=== PATIENT | male | born 1970 | race Caucasian/White ===

== ENCOUNTER 2019-11-21 20:48 | Emergency (ER) | payer BC ==
[~2019-11-21] VITALS: Ht 177.8 cm; Wt 97.5 kg
--- OUTSIDE RECORDS SUMMARY | ~2019-11-21 | XMS | Clinical Summary ---
Demographics + + + | Address | [address] | | | [place] [address] | + + + | Home Phone | | + + + | Preferred Language | Unknown | + + + | Marital Status | Single | + + + | Jain Affiliation | Unknown | + + + | Race | Unknown | + + + | Ethnic Group | Unknown | + + + Author + + + | Author | [facility] | | | and [place] | + + + | Organization | [facility] | | | and [place] | + + + | Address | Unknown | + + + | Phone | Unavailable | + + + Support + + + + + | Name | Relationship | Address | Phone | + + + + + | Hayley Flores | ECON | [address] | | | | | [place] | | | | | [address] | | + + + + + Care Team Providers + +------+ + | Care Fudge Candy Maker Name | Role | Phone | + +------+ + | Rick Iraheta MD | PCP | | + +------+ + Allergies No Known Allergies Medications No known medications Active Problems + + + | Problem | Noted Date | + + + | Calculus of ureter - Left - Mar 2016 | 03/10/2016 | + + + | H/O Tear of ACL (anterior cruciate ligament) | 03/10/2016 | + + + Family History + + +------+ + | Medical History | Relation | Name | Comments | + + +------+ + | Stroke | Maternal | | | | | Grandfath | | | | | er | | | + + +------+ + | Stroke | Maternal | | | | | Grandmoth | | | | | er | | | + + +------+ + | Cancer | Mother | | | + + +------+ + | Prostate cancer | Neg Hx | | | + + +------+ + + +------+ + + | Relation | Name | Status | Comments | + +------+ + + | Father | | Alive | | + +------+ + + | Maternal Grandfather | | | | + +------+ + + | Maternal Grandmother | | | | + +------+ + + | Mother | | | breast cancer with mets | | | | (Age | | | | | 59) | | + +------+ + + Social History + + + +--------+------+ | Tobacco Use | Types | Packs/Day | Years | Date | | | | | Used | | + + + +--------+------+ | Light Tobacco Smoker | Cigarettes | 0.25 | | | + + + +--------+------+ + +------+---+ + | Smokeless Tobacco: | Chew | | Quit: | | Former User | | | 03/16/19 | | | | | 90 | + +------+---+ + + + | Tobacco Cessation: Ready to Quit: No; Counseling Given: Yes | + + + + +---------+ + | Alcohol Use | Drinks/Week | oz/Week | Comments | + + +---------+ + | Yes | 0 Standard drinks | 0.0 | weekend drinking | | | or equivalent | | only | + + +---------+ + + + + | Sex Assigned at | Date Recorded | | | | + + + | Not on file | | + + + + + + + | Job Start Date | Occupation | Industry | + + + + | Not on file | Not on file | Not on file | + + + + + + + + | Travel History | Travel Start | Travel End | + + + + + + | No recent travel history available. | + + Last Filed Vital Signs + + + + + | Vital Sign | Reading | Time Taken | Comments | + + + + + | Blood Pressure | 124/72 | 03/16/2016 9:50 AM | | | | | PDT | | + + + + + | Pulse | 88 | 03/16/2016 9:50 AM | | | | | PDT | | + + + + + | Temperature | 37.7 C (99.9 F) | 03/10/2016 11:40 AM | | | | | PDT | | + + + + + | Respiratory Rate | 20 | 03/16/2016 9:50 AM | | | | | PDT | | + + + + + | Oxygen Saturation | 96% | 03/10/2016 2:51 PM | | | | | PDT | | + + + + + | Inhaled Oxygen | - | - | | | Concentration | | | | + + + + + | Weight | 95.4 kg (210 lb 4.8 | 03/16/2016 9:50 AM | | | | oz) | PDT | | + + + + + | Height | 177.8 cm (5' 10") | 03/16/2016 9:50 AM | | | | | PDT | | + + + + + | Body Mass Index | 30.17 | 03/16/2016 9:50 AM | | | | | PDT | | + + + + + Plan of Treatment + + + + + | Health Maintenance | Due Date | Last Done | Comments | + + + + + | Vaccine: | | | | | Dtap/Tdap/Td (1 - | 1 | | | | Tdap) | | | | + + + + + | Vaccine: Influenza | | | | | (Season Ended) | 0 | | | + + + + + Implants + +-------+--------+ +--------+--------+--------+ | Implanted | Type | Area | Manufacture | Device | Shelf | Model | | | | | r | | Expira | / | | | | | | Identi | tion | Serial | | | | | | fier | Date | / Lot | + +-------+--------+ +--------+--------+--------+ | Stent Uro Unvrs Sft 7fr 28cm | Stent | Left: | DARIEN | | 10/25/ | [id number] | | - [id number]: Qty: 1 | | Ureter | [employer] | | 2018 | / | | on 03/10/2016 by Leidy, | | | - DARIEN | | | /[id number] | | John Peralta MD at [facility] | | | | | | 86 | | [facility] | | | | | | | + +-------+--------+ +--------+--------+--------+ Results Not on filefrom Last 3 Months Insurance + +--------+ +--------+ +---------+------+ | Payer | Benefi | Subscriber | Effect | Phone | Address | Type | | | t Plan | ID | amber | | | | | | / | | Dates | | | | | | Group | | | | | | + +--------+ +--------+ +---------+------+ | [facility] | [employer] | [id number] | 08/09/19 | [id number] | | PPO | | | | | 16-Pre | 2 | | | | | HEALTH | | sent | | | | | | CARE | | | | | | | | PPO | | | | | | + +--------+ +--------+ +---------+------+ + +--------+ +--------+ + + | Guarantor Name | Accoun | Relation to | Date | Phone | Billing Address | | | t Type | Patient | of | | | | | | | | | | + +--------+ +--------+ + + | Dimitri Robles | Person | Self | [birth year] | [address] | | [address]/Fam | | 1970 | [phone] | [address] [place], | | | maia | | | [address] (Home) | [place] [address] | + +--------+ +--------+ + + Advance Directives + + + + + | Type | Date Recorded | Patient | Explanation | | | | Engineering Program Analyst | | + + + + + | Power of | | | | | Reject Opener And Filler | | | | + + + + + | Advance | 03/08/2016 6:39 | | working on updating old copy | | Directive | PM | | | + + + + + + + + + + | Code Status | Date | Date | Comments | | | Activated | Inactivated | | + + + + + | Full Code | 03/10/2016 | 03/10/2016 | | | | 12:06 PM | 5:49 PM | | + + + + +
--- OUTSIDE RECORDS SUMMARY | ~2019-11-21 | XMS | Encounter Summary ---
Demographics + + + | Address | [address] | | | [place] [address] | + + + | Home Phone | | + + + | Preferred Language | Unknown | + + + | Marital Status | Single | + + + | Yazidism Affiliation | Unknown | + + + | Race | Unknown | + + + | Ethnic Group | Unknown | + + + Author + + + | Author | [facility] | | | and [place] | + + + | Organization | [facility] | | | and [place] | + + + | Address | Unknown | + + + | Phone | Unavailable | + + + Support + + + + + | Name | Relationship | Address | Phone | + + + + + | Hayley Flores | ECON | [address] | | | | | [place], [place] | | | | | [address] | | + + + + + Care Team Providers + +------+ + | Care Councillor [employer] Name | Role | Phone | + +------+ + | No, Physician | PCP | Unavailable | + +------+ + Reason for Visit Auth/Cert +--------+--------+ + + + + | Status | Reason | Specialty | Diagnoses / | Referred By | Referred To | | | | | Procedures | Contact | Contact | +--------+--------+ + + + + | | | | Diagnoses | | | | | | | Left | | | | | | | ureteral | | | | | | | stone Left | | | | | | | ureteral | | | | | | | stone | | | | | | | [N20.1] | | | | | | | Procedures | | | | | | | TN | | | | | | | CYSTO/URETER | | | | | | | O | | | | | | | W/LITHOTRIPS | | | | | | | Y &INDWELL | | | | | | | STENT INSRT | | | | | | | CYSTOSCOPY | | | | | | | URETEROSCOPY | | | | | | | W/ LASER | | | +--------+--------+ + + + + Encounter Details +--------+ + + + + | Date | Type | Department | Care Team | Description | +--------+ + + + + | 03/10/ | Hospital | [facility] | John Forbes, | | | 2016 | Encounter | MED CTR XRAY [address] | MD Lonnie IBARRA | | | | | [place] | [place] | | | | | [place] [address] | [address] | | | | | [phone] | | | +--------+ + + + + Social History + + + +--------+------+ | Tobacco Use | Types | Packs/Day | Years | Date | | | | | Used | | + + + +--------+------+ | Light Tobacco Smoker | Cigarettes | 0.25 | | | + + + +--------+------+ + + +---------+ + | Alcohol Use | Drinks/Week | oz/Week | Comments | + + +---------+ + | Yes | | | weekend drinking | | | | | only | + + +---------+ [...] recent travel history available. | + + documented as of this encounter Medications at Time of Discharge + + + +---------+ + + | Medication | Sig | Dispensed | Refills | Start | End Date | | | | | | Date | | + + + +---------+ + + | | Take 1 tablet by | 15 | 0 | 03/10/20 | | | HYDROcodone-acetamin | mouth every 4 hours | tablet | | 16 | 6 | | ophen (NORCO) 5-325 | as needed. | | | | | | mg per tablet | | | | | | + + + +---------+ + + | ondansetron | Take 4 mg by mouth | | 0 | | | | (ZOFRAN ODT) 4 mg | every 8 hours as | | | | 6 | | disintegrating | needed for Nausea. | | | | | | tablet | | | | | | + + + +---------+ + + | | Take 1-2 tablets by | | 0 | | | | oxyCODONE-acetaminop | mouth every 6 hours | | | | 6 | | hen (PERCOCET) 5-325 | as needed for Pain. | | | | | | mg per tablet | For renal stones | | | | | + + + +---------+ + + | phenazopyridine | Take 1 tablet by | 9 | 0 | 03/10/20 | | | (PYRIDIUM) 200 mg | mouth 3 times daily | tablet | | 16 | 6 | | tablet | for 3 days. | | | | | + + + +---------+ + + | | Take 1 tablet by | 10 | 0 | 03/10/20 | | | sulfamethoxazole-tri | mouth 2 times daily | tablet | | 16 | 6 | | methoprim (BACTRIM | for 5 days. | | | | | | DS) 800-160 mg per | | | | | | | tablet | | | | | | + + + +---------+ + + | tamsulosin | Take 1 capsule by | 30 | 0 | 03/08/20 | | | (FLOMAX) 0.4 mg CAPS | mouth Daily. | capsule | | 16 | 6 | + + + +---------+ + + documented as of this encounter Plan of Treatment Not on filedocumented as of this encounter Procedures + +--------+ + + + | Procedure Name | Priori | Date/Time | Associated Diagnosis | Comments | | | ty | | | | + +--------+ + + + | FL PYELOGRAM | Routin | 03/10/2016 | | Results for this | | RETROGRADE | e | 12:04 PM | | procedure are in the | | | | PDT | | results section. | + +--------+ + + + documented in this encounter Results FL Pyelogram Retrograde (03/10/2016 12:04 PM PDT) + + | Specimen | + + | | + + + + + | Narrative | Performed At | + + + | FL PYELOGRAM RETROGRADE. 03/10/2016 12:03 PM HISTORY: intra op. | [facility] | | COMPARISON: None available. FINDINGS/IMPRESSION - | | | Fluoroscopic images demonstrate placement of left-sided pigtail | | | catheter. Please see the operative report for further details. | | | Dictated and Signed by: Adalid Graves MD Electronically | | | signed: 03/10/2016 12:57 PM | | + + + + + | Procedure Note | + + | Carlos Alberto Valdovinos Results In - 03/10/2016 1:00 PM PDT FL PYELOGRAM RETROGRADE. 03/10/2016 | | 12:03 PMHISTORY: intra op.COMPARISON: None available.FINDINGS/IMPRESSION -Fluoroscopic | | images demonstrate placement of left-sided pigtail catheter.Please see the operative | | report for further details.Dictated and Signed by: Adalid Graves MD Electronically | | signed: 03/10/2016 12:57 PM | | | |FINDINGS/IMPRESSION - | |Fluoroscopic images demonstrate placement of left-sided pigtail catheter. | | | |Please see the operative report for further details. | | | |Dictated and Signed by: Aadlid Graves MD | | Electronically signed: 03/10/2016 12:57 PM | + + + +---------+ + + | Performing | Address | City/State/Zipcode | Phone Number | | Organization | | | | + +---------+ + + | [facility] | | | | + +---------+ + + documented in this encounter Visit Diagnoses Not on filedocumented in this encounter"
--- OUTSIDE RECORDS SUMMARY | ~2019-11-21 | XMS | Encounter Summary ---
Demographics + + + | Address | [address] | | | [place] [address] | + + + | Home Phone | | + + + | Preferred Language | Unknown | + + + | Marital Status | Single | + + + | Anglican Affiliation | Unknown | + + + | Race | Unknown | + + + | Ethnic Group | Unknown | + + + Author + + + | Author | [facility] | | | and [place] | + + + | Organization | [facility] | | | and [...] [place], [place] | | | | | [address] | | + + + + + Care Team Providers + +------+ + | Care Supervisor Records Change Name | Role | Phone | + [...] | | | | | | | [place] | | | | | | | [...] + + | 03/10/ | Hospital | [facility] | John Forbes, | Calculus of ureter | | 2016 | Encounter | MED CTR OR INTRA OP | MD Lonnie IBARRA | (Primary Dx) | | | | [address] | [place] | | | | | [place] | [address] | | | | | [address] | | | | | | [phone] | | | +--------+ + + + [...] + + documented as of this encounter Last Filed Vital Signs + + + + + | Vital Sign | Reading | Time Taken | Comments | + + + + + | Blood Pressure | 136/68 | 03/10/2016 2:45 PM | | | | | PDT | | + + + + + | Pulse | 99 | 03/10/2016 2:51 PM | | | | | PDT | | + + + + + | Temperature | 37.7 C (99.9 F) | 03/10/2016 11:40 AM | | | | | PDT | | + + + + + | Respiratory Rate | 16 | 03/10/2016 12:30 PM | | | | | PDT | | + + + + + | Oxygen Saturation | 96% | 03/10/2016 2:51 PM | | | | | PDT | | + + + + + | Inhaled Oxygen | - | - | | | Concentration | | | | + + + + + | Weight | 94.3 kg (208 lb) | 03/10/2016 9:00 AM | | | | | PDT | | + + + + + | Height | 177.8 cm (5' 10") | 03/10/2016 9:00 AM | | | | | PDT | | + + + + + | Body Mass Index | 29.84 | 03/10/2016 9:00 AM | | | | | PDT | | + + + + + documented in this encounter Discharge Instructions Instructions John Forbes MD - 03/10/2016DISCHARGE INSTRUCTIONS URINARY TRACT STONE SURGERY including: URETEROSCOPY WITH STONE EXTRACTION LASER LITHOTRIPSY URETERAL STENT PLACEMENT Activity: Light for 1-2 days. Walk frequently as tolerated. Gradually return to normal activitie s as tolerated. Best to avoid intercourse for 5-7 days. Preferable to avoid heavy lifting or straining for 5-7 days. Following laser lithotripsy, please strain your urine and save any stones for analysis. Diet: Clear liquids until nausea passes, then return to normal diet as tolerated. Fluids are encouraged to help flush blood out of your urinary tract. Drink 8 glasses of fluid a day until urine is free of blood. Pain pills can cause constipation. Use a laxative of your choice if necessary. Pain and Comfort: Bloody urine is common and will generally clear up within several days, but can last zaid dino. Slight burning on urination may occur. Urinary urgency and frequency is also not unusua l after this type of surgery. Use pain medication as directed. Take Tylenol for less severe pain. Do not take Aspirin for 72 hours after your surgery, unless instructed differently. Additional Instructions: You may shower at any time. Follow up: Call Dr Forbes's office ([phone]) to set up your follow-up appointment or other arr angements as appropriate. Call YOUR UROLOGIST'S office for: Unremitting very heavy bright red bleeding and/or large volume of clots when urinating, that is worsening despite rest and pushing oral fluids. Inability to urinate. Elevated fever over 101 F. Frequent unremitting nausea/vomiting. Severe pain not relieved by rest or prescribed pain medication. If you are unable to reach your doctor at the above number, call the answering service at (after hours and weekends). If you have received sedation / an anesthetic today, DO NOT drive a vehicle, use alcoholic beverages, sign legal documents, take public transportation alone or care for a dependent pe rson for the next 24 hours. Also, you should not drive until you are off of all narcotic pa in medications and can move your legs easily without pain. Stent: You do have a ureteral stent in on your left side. If you do have a stent, please review the following: DO NOT CUT OR TRIM THE SUTURE EXITING THE URETHRA, IT IS ATTACHED TO THE STENT What is a Stent? A stent is a soft silicone tube placed in your ureter (the tube from your kidney to your bl adder). It is used to facilitate the passage of urine and sometimes kidney stone fragments f rom your kidney. How does it feel? The following symptoms are normal: 1. Pressure or mild irritation in your bladder area. 2. Urgency to urinate. 3. Occasional discomfort in the kidney before and after you empty your bladder. 4. Blood in the urine is common and will generally clear up within several days but can las t longer. 5. Sexual activity is safe while the stent is in place, though it may be uncomfortable for you. These symptoms go away after the removal of your stent. Some patients have no symptoms at a ll, while others are quite limited by the stent. When is it removed? Stent removal is usually a simple procedure with minimal discomfort, generally done within 1-2 weeks after insertion. It usually involves placing numbing jelly into the urethra, and then using a small scope to grab and extract the stent. The entire procedure usually takes less than one minute. String? If there is a string or thread tied to the stent that is visible, DO NOT CUT OR PULL THE ST RING. If it disappears, do not worry about it. When the doctor is ready to remove the stent, this string will be used to help pull it out. documented in this encounter Medications at Time of Discharge [...] section. | + +--------+ + + + | CALCULI ANALYSIS | Routin | 03/10/2016 | | Results for this | | | e | 11:04 AM | | procedure are in the | | | | PDT | | results section. | + +--------+ + + + | CYSTOSCOPY | | 03/10/2016 | Left ureteral | | | URETEROSCOPY W/ | | 9:59 AM | stone | | | LASER | | PDT | | | + +--------+ + + + | LABS - EXTERNAL SCAN | | 03/09/2016 | | Results for this | | | | 12:00 AM | | procedure are in the | [...] | | | |Dictated and Signed by: Adalid Graves MD | | Electronically signed: 03/10/2016 12:57 PM | + + + +---------+ + + | Performing | Address | City/State/Zipcode | Phone Number | | Organization | | | | + +---------+ + + | [facility] | | | | + +---------+ + + Calculi Analysis (03/10/2016 11:04 AM PDT) + + + + + + | Component | Value | Ref Range | Performed | Pathologist | | | | | At | Signature | + + + + + + | Nidus | Not observed | | REFERENCE | | | | | | [facility] | | + + + + + + | Component 1 | See CommentsComment: | | REFERENCE | | | | Calcium Oxalate | | [facility] | | | | Dihydrate ([place]) | | | | | | 65%Carbonate Apatite | | | | | | ([place]) 35% | | | | + + + + + + | Component 2 | Not Reported | | REFERENCE | | | | | | [facility] | | + + + + + + | Calculi | 0.0200Comment: Testing | g | REFERENCE | | | Weight | Performed: Specialty | | [facility] | | | | [place] | | | | | | [address] | | | | | | [place] [address] | | | | + + + + + + + + | Specimen | + + | Soft tissue sample | | (specimen) - Ureter | + + + + + | Narrative | Performed At | + + + | Please specify site/laterality >left ureter kidney stone | REFERENCE LAB | | | [facility] | + + + + + + + + | Performing | Address | City/State/Zipcode | Phone Number | | Organization | | | | + + + + + | [facility] | [address] | [place] [address] | [phone] | + + + + + LABS - EXTERNAL SCAN (03/09/2016 12:00 AM PDT) + + + | Narrative | Performed At | + + + | Ordered by an | | | unspecified provider. | | + + + documented in this encounter Visit Diagnoses + + | Diagnosis | + + | Calculus of ureter - Left - Mar 2016 - Primary Calculus of ureter | + + documented in this encounter Administered Medications + +--------+ + +------+------+ | Medication Order | MAR | Action | Dose | Rate | Site | | | Action | Date | | | | + +--------+ + +------+------+ | HYDROcodone-acetaminophen | Given | 03/10/20 | 1 tablet | | | | (NORCO) 5-325 mg per tablet 1-2 | | 16 1:36 | | | | | tablet 1-2 tablet, Oral, EVERY 4 | | PM PDT | | | | | HOURS PRN, Pain, Starting Fri | | | | | | | 03/10/16 at 1206, If ineffective | | | | | | | use [place] 10/325 if ordered. If | | | | | | | not tolerated, use Percocet then | | | | | | | Oxycodone if ordered., | | | | | | | Post-op/Phase II | | | | | | + +--------+ + +------+------+ +-------+ + +---+---+ | Given | 03/10/20 | 1 tablet | | | | | 16 12:39 | | | | | | PM PDT | | | | +-------+ + +---+---+ +---+---+ | | | +---+---+ + +-------+ +-------+---+---+ | ketorolac (TORADOL) injection | Given | 03/10/20 | 30 mg | | | | 30 mg 30 mg, Intravenous, ONCE, | | 16 11:59 | | | | | 03/10/16 at 1200, For 1 dose, | | AM PDT | | | | | If urine output is less than | | | | | | | 240mL/8 hours (30 mL/hr) or if | | | | | | | signs of bleeding, contact MD and | | | | | | | hold ketorolac., Post-op/Phase | | | | | | | II | | | | | | + +-------+ +-------+---+---+ +---+---+ | | | +---+---+ + +---------+ +--------+-------+---+ | lactated ringers (LR) infusion | New Bag | 03/10/20 | 1,000 | 100 | | | at 10-100 mL/hr, Intravenous, | | 16 1:56 | mLs | mL/hr | | | CONTINUOUS, Starting 03/10/16 | | PM PDT | | | | | at 0945, TKO., Pre-op | | | | | | + +---------+ +--------+-------+---+ +---------+ +--------+-------+---+ | New Bag | 03/10/20 | 1,000 | 100 | | | | 16 9:41 | mLs | mL/hr | | | | AM PDT | | | | +---------+ +--------+-------+---+ +---+---+ | | | +---+---+ + +-------+ +--------+---+---+ | phenazopyridine (PYRIDIUM) | Given | 03/10/20 | 200 mg | | | | tablet 200 mg 200 mg, Oral, | | 16 12:39 | | | | | ONCE, 03/10/16 at 1230, For 1 | | PM PDT | | | | | dose, Post-op/Phase II | | | | | | + +-------+ +--------+---+---+ +---+---+ | | | +---+---+ documented in this encounter
--- OUTSIDE RECORDS SUMMARY | ~2019-11-21 | XMS | Encounter Summary ---
Demographics + + + | Address | [address] | | | [place] [address] | + + + | Home Phone | | + + + | Preferred Language | Unknown | + + + | Marital Status | Single | + + + | Zoroastrian Affiliation | Unknown | + + + | Race | Unknown | + + + | Ethnic Group | Unknown | + + + Author + + + | Author | [facility] | | | and [place] | + + + | Organization | [facility] | | | [...] [address] | | | | | [place] | | | | | [address] | | + + + + + Care Team Providers + +------+ + | Care Instructor Physical Name | Role | Phone | + +------+ + | Rick Iraheta MD | PCP | | + +------+ + Reason for Visit +--------+ + | Reason | Comments | +--------+ + | Other | POST OP | +--------+ + Encounter Details +--------+ + + + + | Date | Type | Department | Care Team | Description | +--------+ + + + + | 03/14/ | Telephone | [facility] | John Forbes, | Other (POST OP) | | 2016 | | [address] | MD [address] | | | | | [place] | [place] | | | | | [address] | [address] | | | | | [phone] | | | +--------+ + + + [...] Not on filedocumented as of this encounter Visit Diagnoses Not on filedocumented in this encounter"
--- OUTSIDE RECORDS SUMMARY | ~2019-11-21 | XMS | Encounter Summary ---
Demographics + + + | Address | [address] | | | [place] [address] | + + + | Home Phone | | + + + | Preferred Language | Unknown | + + + | Marital Status | Single | + + + | Protestant Affiliation | Unknown | + + + | Race | Unknown | + + + | Ethnic Group | Unknown | + + + Author + + + | Author | [facility] | | | and [place] | + + + | Organization | [facility] | | | [...] [place] | | | | | [address] | | + + + + + Care Team Providers + +------+ + | Care Packing And Final Assembly Supervisor Name | Role | Phone | + +------+ + | No, Physician | PCP | Unavailable | + +------+ + Reason for Visit + + + | Reason | Comments | + + + | Abdominal Pain | | + + + Encounter Details +--------+ + + + + | Date | Type | Department | Care Team | Description | +--------+ + + + + | 03/08/ | Emergency | [facility] | Rodrick Gonzalez, | Acute abdominal pain | | 2016 | | [facility] | MD [address] | in left flank | | | | CENTER [address] | [place], [place] | (Primary Dx); Renal | | | | [place], [place] | [address] | colic on left side | | | | [address] | | | | | | [phone] | | | +--------+ + + + + Social History + + + +--------+------+ | Tobacco Use | Types | Packs/Day | Years | Date | | | | | Used | | + + + +--------+------+ | Light Tobacco Smoker | Cigarettes | 0.25 | | | + + + +--------+------+ + + | Tobacco Cessation: Ready to Quit: No | + + + + +---------+ + | Alcohol Use | Drinks/Week | oz/Week | Comments | + + +---------+ + | Yes | | | | + + +---------+ + + + [...] + + + | Blood Pressure | 147/93 | 03/08/2016 2:53 PM | | | | | PDT | | + + + + + | Pulse | 78 | 03/08/2016 6:34 PM | | | | | PDT | | + + + + + | Temperature | 37.2 C (99 F) | 03/08/2016 2:53 PM | | | | | PDT | | + + + + + | Respiratory Rate | 16 | 03/08/2016 6:34 PM | | | | | PDT | | + + + + + | Oxygen Saturation | 97% | 03/08/2016 6:34 PM | | | | | PDT | | + + + + + | Inhaled Oxygen | - | - | | | Concentration | | | | + + + + + | Weight | 97.5 kg (215 lb) | 03/08/2016 2:53 PM | | | | | PDT | | + + + + + | Height | 177.8 cm (5' 10") | 03/08/2016 2:53 PM | | | | | PDT | | + + + + + | Body Mass Index | 30.85 | 03/08/2016 2:53 PM | | | | | PDT | | + + + + + documented in this encounter Discharge Instructions AttachmentsThe following attachments cannot be sent through Care Everywhere.ABDOMINAL PAIN, ADULT (FILIPINO)KIDNEY STONE W/ COLIC (FILIPINO)documented in this encounter Medications at Time of [...] | + +--------+ + + + | CT RENAL STONE WO | STAT | 03/08/2016 | | Results for this | | CONTRAST | | 5:10 PM | | procedure are in the | | | | PDT | | results section. | + +--------+ + + + documented in this encounter Results CT Renal Stone Wo Contrast (03/08/2016 5:10 PM PDT) + + | Specimen | + + | | + + + + + | Narrative | Performed At | + + + | UNENHANCED CT ABDOMEN AND PELVIS 03/08/2016 5:06 PM CLINICAL | [facility] | | HISTORY: ABDOMINAL PAIN AND URINARY FREQUENCY, HISTORY OF KIDNEY | | | STONES COMPARISON: CT abdomen and pelvis February 19 | | | TECHNIQUE: Axial unenhanced images are performed through the abdomen | | | and pelvis. Coronal and sagittal reformations are also performed. | | | ABDOMEN FINDINGS: Minimally imaged lung bases are unremarkable. | | | Portions of the liver, stomach, spleen, pancreas and adrenal glands | | | are not imaged. Imaged portions of these organs have an | | | unremarkable unenhanced appearance, along with the gallbladder. The | | | previously evident 4 mm left ureteral calculus has migrated slightly | | | more distally, and is positioned approximately 1.5 cm proximal to | | | the ureterovesical junction. Previously visible mild | | | hydroureteronephrosis has resolved and periureteral inflammation has | | | significantly improved as well. No other renal or ureteral calculus | | | is evident. No renal parenchymal abnormality is visible on this | | | unenhanced exam. The bowel and appendix are unremarkable, without | | | evidence of obstruction or inflammation. No free air, ascites, or | | | pathologic lymph node enlargement is evident. There is a small, | | | fat-containing umbilical hernia. Small Schmorl's nodes are present | | | within lumbar vertebral endplates. The bones and soft tissues are | | | otherwise unremarkable. PELVIS FINDINGS: The bladder is mostly | | | decompressed and not well evaluated. The prostate and seminal | | | vesicles are unremarkable. Rounded deep pelvic calcifications | | | persist and are consistent with phleboliths. Tiny, fat-containing | | | inguinal hernias are suggested. Mildly prominent bilateral inguinal | | | lymph nodes measure up to 1.4 cm short axis on the right on image | | | 134. No free air or ascites is evident. The bones and soft tissues | | | are unremarkable. IMPRESSION - 1. INTERVAL MIGRATION OF THE | | | PREVIOUSLY VISIBLE LEFT URETERAL CALCULUS, NOW POSITIONED | | | APPROXIMATELY 1.5 CM PROXIMAL TO THE URETEROVESICAL JUNCTION, WITH | | | RESOLVING PERIURETERAL INFLAMMATION AND NO RESIDUAL | | | HYDROURETERONEPHROSIS. 2. MILDLY PROMINENT BILATERAL INGUINAL | | | LYMPH NODES. Images were provided for interpretation on March 08, | | | 2015 at 1715 hours. Results were finalized at 1735 hours. | | | Dictated and Signed by: Rodriguez Griffin MD Electronically signed: | | | 03/08/2016 5:34 PM | | + + + + + | Procedure Note | + + | Bonifacio, Rad Results In - 03/08/2016 5:[address] ABDOMEN AND PELVIS | | 03/08/2016 5:06 PM CLINICAL HISTORY: ABDOMINAL PAIN AND URINARY FREQUENCY, HISTORY OF | | KIDNEYSTONES COMPARISON: CT abdomen and pelvis February 19 TECHNIQUE: Axial unenhanced | | images are performed through the abdomen and pelvis. Coronal and sagittal reformations | | are also performed. ABDOMEN FINDINGS: Minimally imaged lung bases are unremarkable. | | Portions ofthe liver, stomach, spleen, pancreas and adrenal glands are not imaged. | | Imagedportions of these organs have an unremarkable unenhanced appearance, along withthe | | gallbladder. The previously evident 4 mm left ureteral calculus hasmigrated slightly | | more distally, and is positioned approximately 1.5 cm proximalto the ureterovesical | | junction. Previously visible mild hydroureteronephrosishas resolved and periureteral | | inflammation has significantly improved as well. No other renal or ureteral calculus is | | evident. No renal parenchymalabnormality is visible on this unenhanced exam. The bowel | | and appendix areunremarkable, without evidence of obstruction or inflammation. No free | | air,ascites, or pathologic lymph node enlargement is evident. There is a | | small,fat-containing umbilical hernia. Small Schmorl's nodes are present withinlumbar | | vertebral endplates. The bones and soft tissues are otherwiseunremarkable. PELVIS | | FINDINGS: The bladder is mostly decompressed and not well evaluated. The prostate and | | seminal vesicles are unremarkable. Rounded deep pelviccalcifications persist and are | | consistent with phleboliths. Tiny,fat-containing inguinal hernias are suggested. | | Mildly prominent bilateralinguinal lymph nodes measure up to 1.4 cm short axis on the | | right on image 134. No free air or ascites is evident. The bones and soft tissues are | | unremarkable. IMPRESSION - 1. INTERVAL MIGRATION OF THE PREVIOUSLY VISIBLE LEFT | | URETERAL CALCULUS, NOWPOSITIONED APPROXIMATELY 1.5 CM PROXIMAL TO THE URETEROVESICAL | | JUNCTION, WITHRESOLVING PERIURETERAL INFLAMMATION AND NO RESIDUAL | | HYDROURETERONEPHROSIS.2. MILDLY PROMINENT BILATERAL INGUINAL LYMPH NODES.Images were | | provided for interpretation on March 08, 2016 at 1715 hours. Results were finalized at | | 1735 hours.Dictated and Signed by: Rodriguez Griffin MD Electronically signed: 03/08/2016 | | 5:34 PM | |fat-containing inguinal hernias are suggested. Mildly prominent bilateral | |inguinal lymph nodes measure up to 1.4 cm short axis on the right on image 134. | |No free air or ascites is evident. The bones and soft tissues are unremarkable. | | | |IMPRESSION - | |1. INTERVAL MIGRATION OF THE PREVIOUSLY VISIBLE LEFT URETERAL CALCULUS, NOW | |POSITIONED APPROXIMATELY 1.5 CM PROXIMAL TO THE URETEROVESICAL JUNCTION, WITH | |RESOLVING PERIURETERAL INFLAMMATION AND NO RESIDUAL HYDROURETERONEPHROSIS. | | | |2. MILDLY PROMINENT BILATERAL INGUINAL LYMPH NODES. | | | |Images were provided for interpretation on March 08, 2016 at 1715 hours. | |Results were finalized at 1735 hours. | | | |Dictated and Signed by: Rodriguez Griffin MD | | Electronically signed: 03/08/2016 5:34 PM | + + + +---------+ + + | Performing | Address | City/State/Zipcode | Phone Number | | Organization | | | | + +---------+ + + | [facility] | | | | + +---------+ + + documented in this encounter Visit Diagnoses + + | Diagnosis | + + | Acute abdominal pain in left flank - Primary Abdominal pain, unspecified site | + + | Renal colic on left side Renal colic | + + documented in this encounter
--- OUTSIDE RECORDS SUMMARY | ~2019-11-21 | XMS | Encounter Summary ---
Demographics + + + | Address | [address] | | | [place] [address] | + + + | Home Phone | | + + + | Preferred Language | Unknown | + + + | Marital Status | Single | + + + | Scientologist Affiliation | Unknown | + + + | Race | Unknown | + + + | Ethnic Group | Unknown | + + + Author + + + | Author | [facility] | | | and [place] | + + + | Organization | [facility] | | | [...] [place] | | | | | [address] | | + + + + + Care Team Providers + +------+ + | Care Coroner/Medical Examiner Name | Role | Phone | + +------+ + | Rick Iraheta MD | PCP | | + +------+ + Reason for Visit + + + | Reason | Comments | + + + | Nephrolithiasis | | + + + Encounter Details +--------+---------+ + + + | Date | Type | Department | Care Team | Description | +--------+---------+ + + + | 03/16/ | Office | [facility] | John Forbes, | Left ureteral | | 2016 | Visit | [address] | MD [address] | calculus (Primary | | | | [place], [place] | [place] | Dx) | | | | [address] | [address] | | | | | [phone] | | | +--------+---------+ + + + Social History + + [...] [birth year] | + +------+---+ + + + +---------+ + | Alcohol [...] + + + + | Temperature | - | - | | + + + + + | Respiratory Rate | 20 | 03/16/2016 9:50 AM | | | | | PDT | | + + + + + | Oxygen Saturation | - | - | | + + + + + [...] + + + documented in this encounter Patient Instructions Patient Instructions John Forbes MD - 03/16/2016 10:28 AM PDTDrink lots of water to ke ep urine dilute at all times. Ideally, you should drink enough water to produce 2 liters of urine every day. To reduce risk of stones, a low sodium, low fat, low oxalate, low animal protein diet is he lpful. Also increase citrate intake, as citrate is a stone inhibitor. Citrate can be found i n dariela, oranges, pineapple, and grapefruit. Ask your primary care provider if grapefruit c onsumption is OK for you, as this particular citrus fruit may interact with some medications . Magnesium is also a stone inhibitor, and may help reduce the risks of kidney stones. documented in this encounter Progress Notes John Forbes MD - 03/16/2016 9:43 AM PDTFormatting of this note might be different fro m the original. Dimitri is a 45 y.o. male patient being seen today for follow up for kidney stones. Dimitri reports sudden onset of left flank and left lower quadrant abdominal pain on approx imately 02/20/2016. He thought that his pain may have been related to "gas," but his pain in tensified and became severe, so he was seen in the emergency department at [facility]. He underwent CT imaging which demonstrated a 6 mm distal left ureteral stone. Jenny ag was treated and released. He failed a trial of stone passage, and underwent left ureteroscopy with laser lithotripsy and stone extraction on 03/10/2016. Dimitri reports that he has done very well since the time of his surgical procedure. He de nies having any renal colic. He has noticed bladder irritability with urinary urgency and f requency, but states that his dysuria and hematuria has resolved. He denies any fever or ch ills or nausea or vomiting. He denies any flank or back or abdominal pain. Overall, he states that he feels well, and is glad that he went through with ureteroscopic treatment of his stone. He states that he drinks a lot of water, and "doesn't drink much" coffee or soda. He is single. He has 1 child. He works in building maintenance. He lives in [place]. No known family history of prostate cancer or nephrolithiasis. His mother at age 59 wi th breast cancer. Over 15 minute encounter with Dimitri today, over 50% of this time spent in counseling rega rding his nephrolithiasis, and dietary recommendations to reduce his risk of stone disease. Past Medical History He has a past medical history of ACL injury tear (02/02/16) and Kidney stones (2015). Past Surgical History He has past surgical history that includes Ureteroscopy (Left, 03/10/2016). Family History: His family history includes Cancer in his mother; Stroke (age of onset: 80) in his maternal grandmother; Stroke (age of onset: 92) in his maternal grandfather. There is no history of Prostate cancer. Social History: He reports that he has been smoking Cigarettes. He has been smoking about 0.25 packs per d ay. He quit smokeless tobacco use about 26 years ago. His smokeless tobacco use included Lucero w. He reports that he drinks alcohol. He reports that he does not use illicit drugs. No Known Allergies Medications: Outpatient Encounter Prescriptions as of 03/16/2016 Medication Sig Dispense Refill [DISCONTINUED] HYDROcodone-acetaminophen (NORCO) 5-325 mg per tablet Take 1 tablet by m outh every 4 hours as needed. 15 tablet 0 [DISCONTINUED] ondansetron (ZOFRAN ODT) 4 mg disintegrating tablet Take 4 mg by mouth e very 8 hours as needed for Nausea. [DISCONTINUED] oxyCODONE-acetaminophen (PERCOCET) 5-325 mg per tablet Take 1-2 tablets by mouth every 6 hours as needed for Pain. For renal stones [DISCONTINUED] sulfamethoxazole-trimethoprim (BACTRIM DS) 800-160 mg per tablet Take 1 tablet by mouth 2 times daily for 5 days. 10 tablet 0 tamsulosin (FLOMAX) 0.4 mg CAPS Take 1 capsule by mouth Daily. 30 capsule 0 No facility-administered encounter medications on file as of 03/16/2016. PHYSICAL EXAM Vitals: BP 124/72 mmHg | Pulse 88 | Resp 20 | Ht 1.778 m (5' 10") | Wt 95.391 kg (210 lb 4. 8 oz) | BMI 30.17 kg/m2 General: Awake, alert, in no acute distress. Speech is fluent. Appears to be stated age. Anxious. Neck: Supple; no lymphadenopathy. HENT: Atraumatic, external ears normal, nose normal, oropharynx moist, no pharyngeal exudat es. Bearded. Lungs: Normal respiratory effort, no wheezing, no stridor, no tachypnea. Clear to auscult ation bilaterally. Heart: Normal rate, normal rhythm, no murmurs, no gallops, no rubs. Chest: No rib or bony tenderness. Back: No CVA tenderness. Abdomen: Soft, nondistended, nontender, bowel tones normal active. No hepatosplenomegaly. No masses. No guarding; benign. Bladder nondistended. Extremities: Non-edematous. Hips and long bones nontender to fist percussion. Neuro: Awake, alert, oriented x3. Normal station and gait. Psychiatric: Mood and affect are normal. Normal judgment. Skin: Warm and dry, no erythematous rash. Genitalia: No lesion. Normal in appearance. Suture tether exiting the urethral meatus. DIAGNOSTIC DATA: UNENHANCED CT ABDOMEN AND PELVIS 03/08/2016 5:06 PM IMPRESSION - 1. INTERVAL MIGRATION OF THE PREVIOUSLY VISIBLE LEFT URETERAL CALCULUS, NOW POSITIONED APPROXIMATELY 1.5 CM PROXIMAL TO THE URETEROVESICAL JUNCTION, WITH RESOLVING PERIURETERAL INFLAMMATION AND NO RESIDUAL HYDROURETERONEPHROSIS. 2. MILDLY PROMINENT BILATERAL INGUINAL LYMPH NODES. Images were provided for interpretation on March 08, 2016 at 1715 hours. Results were finalized at 1735 hours. Dictated and Signed by: Rodriguez Griffin MD Electronically signed: 03/08/2016 5:34 CT imaging 02/20/2016 at [facility] demonstrates mild left hydronephrosis wi th a 5.5 mm distal left ureteral stone. CBC 02/20/2016 shows WBC 8.9, hemoglobin 15.9, platelets 269. Urinalysis 02/20/2016 shows 5 RBC, 0 WBC, no bacteria. Chemistry panel 02/20/2016 shows glucose 160, creatinine 1.03, sodium 142, potassium 3.9, ch loride 109, CO2 22, calcium 9.6. Kidney stone analysis is still pending. IMPRESSION: 1. 4-5.5 mm distal left ureteral calculus. Resolved status post left ureteroscopic stone extraction and laser lithotripsy 03/10/2016. 2. Mild left hydronephrosis. Resolved on updated CT. 3. Intermittent left renal colic. Resolved. PLAN: Dimitri's ureteral stent is removed intact without difficulty. This is shown to the patien t and discarded. I advised Dimitri that he has a 50% chance of forming another stone within the next 10 year s. Elements of a kidney stone risk reduction diet are reviewed with Dimitri in detail again. I recommended that he increase water intake to target a urinary output of 2 L per day. I ga ve Dimitri a list of foods containing oxalates, and I recommended a low oxalate diet, with i nstructions to minimize oxalate consumption to 40-50 mg per day. I also recommended a low s odium, low animal protein, low fat, high citrate diet. We discussed performing further metabolic evaluation including 24-hour urine testing. He d eclines. He will follow-up here on a prn basis. I advised him that he should have a follow-up KUB with his PCP in about one year, sooner fo r symptoms. Dimitri is instructed to resume their usual and customary care with their primary care prov ider. I asked Dimitri to notify me if there were any difficulties voiding, or UTI symptoms, or fl ank pain, or for any questions or concerns whatsoever. This document was generated in part using voice recognition software. Although I have atte mpted to edit the content, I have not thoroughly proofread this note, and fish net maker erro rs may occur. CC: Dr Iraheta documented in this en counter Plan of Treatment Not on filedocumented as of this encounter Visit Diagnoses + + | Diagnosis | + + | Left ureteral calculus - Primary Calculus of ureter | + + documented in this encounter
--- OUTSIDE RECORDS SUMMARY | ~2019-11-21 | XMS | Encounter Summary ---
Demographics + + + | Address | [address] | | | [place] [address] | + + + | Home Phone | | + + + | Preferred Language | Unknown | + + + | Marital Status | Single | + + + | Hindu Affiliation | Unknown | + + + | Race | Unknown | + + + | Ethnic Group | Unknown | + + + Author + + + | Author | [facility] | | | and [place] | + + + | Organization | [facility] | | [...] [place], [place] | | | | | [address] | | + + + + + Care Team Providers + +------+ + | Care National Sales Executive Name | Role | Phone | + [...] | | | | | | | [place] | | | | | | | [...] +--------+--------+ + + + + Encounter Details +--------+---------+ + + + | Date | Type | Department | Care Team | Description | +--------+---------+ + + + | 03/10/ | Surgery | [facility] | John Forbes, | Left Ureteroscopy | | 2016 | | [facility] | MD Lonnie [place]RA | with Laser | | | | [address] | [place] | Lithotripsy and Left | | | | [place] | [address] | Stent Placement | | | | [address] | | | | | | [phone] | | | +--------+---------+ + + + [...] time. Follow up: Call Dr Forbes's office ([phone]) to set up your follow-up appointment or [...] | | | | | [place] [address] | | | | + + + [...] | [address] | [place] [address] | [phone] | + + + + + LABS - EXTERNAL SCAN (03/09/2016 12:00 AM PDT) + + + | Narrative | Performed At | + + + | Ordered by an | | | unspecified provider. | | + + + documented in this encounter Visit Diagnoses + + | Diagnosis | + + | Left ureteral stone | + + documented in this encounter Administered Medications + +--------+ + +------+------+ | Medication Order | MAR | Action | Dose | Rate | Site | | | Action | Date | | | | + +--------+ + +------+------+ | HYDROcodone-acetaminophen | Given | 03/10/20 | 1 tablet | | | | (NORCO) 5-325 mg per tablet - | | 16 1:36 | | | | | tablet 1-2 tablet, Oral, EVERY 4 | | PM PDT | | | | | HOURS PRN, Pain, Starting Fri | | | | | | | 03/10/16 at 1206, If ineffective | | | | | | | use [place] 10/325 if ordered. If | | | [...] +---+---+ | | | +---+---+ + +-------+ +--------+---+ + | iothalamate (CONRAY) 60 % | Given | 03/10/20 | 50 mLs | | Surgical | | injection PRN, Starting Fri | | 16 10:30 | | | Site | | 03/10/16 at 1030, Intra-op | | AM PDT | | | | + +-------+ +--------+---+ + +---+---+ | | | +---+---+ + +-------+ [...] | mL/hr | | | CONTINUOUS, Starting Sun03/10/16 | | PM PDT | | | [...]
--- OUTSIDE RECORDS SUMMARY | ~2019-11-21 | XMS | Encounter Summary ---
Demographics + + + | Address | [address] | | | [place] [address] | + + + | Home Phone | | + + + | Preferred Language | Unknown | + + + | Marital Status | Single | + + + | Sabianism Affiliation | Unknown | + + + | Race | Unknown | + + + | Ethnic Group | Unknown | + + + Author + + + | Author | [facility] | | | and [place] | + + + | Organization | [facility] | | | and [...] [place], [place] | | | | | [address] | | + + + + + Care Team Providers + +------+ + | Care Qc Tech Name | Role | Phone | + [...] | | | | | | | [place] | | | | | | | [...] + + | 03/10/ | Hospital | [facility] | John Forbes, | Calculus of ureter | | 2016 | Encounter | MED [facility] | MD Lonnie IBARRA | (Primary Dx) | | | | [address] | [place] | | | | | [place] | [address] | | | | | [address] | | | | | | [phone] | | | +--------+ + + + [...] time. Follow up: Call Dr Forbes's office ([phone]) to set up your follow-up appointment or [...] | | | | | [place] [address] | | | | + + + [...] | [address] | [place] [address] | [phone] | + + + + + LABS [...] | | | | | | use [place] 10/325 if ordered. If | | | [...]
--- OUTSIDE RECORDS SUMMARY | ~2019-11-21 | XMS | Encounter Summary ---
Demographics + + + | Address | [address] | | | [place] [address] | + + + | Home Phone | | + + + | Preferred Language | Unknown | + + + | Marital Status | Single | + + + | Jehovah'S Witness Affiliation | Unknown | + + + | Race | Unknown | + + + | Ethnic Group | Unknown | + + + Author + + + | Author | [facility] | | | and [place] | + + + | Organization | [facility] | | | [...] [place], [place] | | | | | [address] | | + + + + + Care Team Providers + +------+ + | Care Sales Attendant Building Materials Name | Role | Phone | + [...] | | | | | | | [place] | | | | | | | [...] + + + + | 03/10/ | Anesthesia | [facility] | Ra Pike | | | 2016 | Event | [facility] | MD Alex [address] | | | | [address] | [address] | | | | | [place], [place] | [place] [address] | | | | | [address] | [phone] | | | | | [phone] | | | | | | | Kendall Marquez MD | | | | | | [address] | | | | | | [place] | | | | | | [address] | | | | | | | | +--------+ + + + + Anesthesia Record + + + + + | Procedure Name | Responsible | Anesthesia Start | Anesthesia Stop Time | | | Anesthesiologist | Time | | + + + + + | Left Ureteroscopy | Ra Johnson | 03/10/16 1011 | 03/10/16 1142 | | with Laser | MD Glendy | | | | Lithotripsy and Left | | | | | Stent Placement | | | | | (Left Ureter) | | | | + + + + + +----+---+ + + | Da | T | Event | Comment | | te | i | | | | | m | | | | | e | | | +----+---+ + + | 09 | 0 | | | | /0 | 9 | | | | 2/ | 2 | | | | 20 | 5 | | | | 16 | | | | +----+---+ + + | | 0 | An Checkout | Pre-use anesthesia machine/equipment checkout. | | | 9 | | | | | 4 | | | | | 3 | | | +----+---+ + + | | 0 | An Start | | | | 9 | Data | | | | 4 | | | | | 3 | | | +----+---+ + + | | 1 | An Start | Room ready, anesthesia equipment checked, essential drugs & | | | 0 | | equipment available. Patient Identity checked, anesthesia plan | | | 1 | | explained and consent obtained. Patient transported to OR, | | | 1 | | Monitors applied. Reassessment prior to anesthesia | | | | | induction/procedure. | +----+---+ + + | | 1 | an kendall now | | | | 0 | | | | | 1 | | | | | 4 | | | +----+---+ + + | | 1 | Antibiotic | | | | 0 | Given | | | | 1 | | | | | 5 | | | +----+---+ + + | | 1 | Preoxygenat | Oxygen administered, patient sedated, ventilating spontaneously. | | | 0 | ed | | | | 1 | | | | | 6 | | | +----+---+ + + | | 1 | An | | | | 0 | Induction | | | | 1 | | | | | 7 | | | +----+---+ + + | | 1 | An | Smooth IV induction, easy mask airway. LMA placed and well | | | 0 | Intubation | seated. Breathing Circuit attached to LMA. BSEB/ETCO2 | | | 1 | | (auscultation and capnography) and placement confirmed. | | | 8 | | | +----+---+ + + | | 1 | First | | | | 0 | Inc/Proc St | | | | 2 | | | | | 6 | | | +----+---+ + + | | 1 | an stop | | | | 1 | data | | | | 3 | | | | | 0 | | | +----+---+ + + | | 1 | Extubated | | | | 1 | Awake | | | | 3 | | | | | 7 | | | +----+---+ + + | | 1 | An Stop | Patient handed off to recovery nurse. | | | 4 | | | | | 2 | | | +----+---+ + + +------+ | Meds | +------+ + + + | Name | Total | + + + | ondansetron | 4 mg | + + + | dexamethasone | 6 mg | + + + | midazolam | 2 mg | + + + | propofol (DIPRIVAN) injection | 175 mg | | (bolus) (20 mL) | | + + + | propofol | 179.17 mg | + + + | fentaNYL injection (2 mL) | 100 mcg | + + + | levofloxacin in dextrose | 500 mg | | (LEVAQUIN) IVPB 500 mg | | + + + | lactated ringers (LR) infusion | 700 mL | + + + + + | Name | + + | N2O Flow Rate (L/Min) | + + | O2 Flow Rate (L/Min) | + + | Insp O2 | + + | Exp SEV | + + | Air Flow Rate (L/Min) | + + + + | No blood administrations on file. | + + +--------+ + + + | Type | Details | Placement | Removal | +--------+ + + + | Periph | 03/10/16; 0935; Right; Distal; | 03/10/16 0935 by | 03/10/16 1510 by | | eral | Forearm; [id number] catheter | Millie Florez RN | Millie Florez RN | | IV | system; 18 gauge; distraction, | | | | | intradermal injection; healing | | | | | within expectations; 03/10/16; | | | | | 1510 | | | +--------+ + + + | Airway | Placement Date: 03/10/16; | 03/10/16 1018 by | 03/10/16 1137 by | | | Placement Time: 1018 (created via | Tami Manriquez, | Ra Johnson | | | procedure documentation); Mask | MD | MD Glendy | | | Ventilation: EZ; Attempts: 1; | | | | | Airway Type: laryngeal mask; | | | | | Size: 4; Placement Check: exhaled | | | | | CO2 detection device, bilateral | | | | | chest rise, breath sounds equal | | | | | bilaterally; Removal Date: | | | | | 03/10/16; Removal Time: 1137; | | | | | Additional Comments: Smooth IV | | | | | induction. LMA placed and well | | | | | seated. Secured in place. | | | | | Breathing Circuit attached to | | | | | LMA. BSEB/ETCO2 (auscultation | | | | | and capnography) and placement | | | | | confirmed. | | | +--------+ + + + | Read | 03/10/16; 1125; penis; no | 03/10/16 1125 by | 03/10/16 1555 by | | only - | dressing; healing within | Jessica Mckeon RN | Millie Florez RN | | | expectations; 03/10/16; 1555 | | | | Incisi | | | | | on | | | | +--------+ + + + | Read | 03/10/16; 1125; scrotum; no | 03/10/16 1125 by | 10/01/18 1342 by | | only - | dressing; 10/01/18 | Jessica Mckeon RN | User Epic | | | (Completed/Removed by Utility); | | | | Incisi | 1342 (Completed/Removed by | | | | on | Utility) | | | +--------+ + + + documented in this encounter Social History + + + +--------+------+ | [...] | + +--------+ + + + | ANE AIRWAY NOTE | Routin | 03/10/2016 | | Results for this | | | e | 10:26 AM | | procedure are in the | | | | PDT | | results section. | + +--------+ + + + documented in this encounter Results Anesthesia Airway Note (03/10/2016 10:26 AM PDT) + + + | Narrative | Performed At | + + + | Tami Manriquez MD 03/10/2016 10:26 Anesthesia Airway | | | Placement 03/10/2016 10:18 Preprocedure check: patient identified, | | | oxygen, airway assessed, patient reassessment prior to induction, | | | airway equipment checked and suction Mask ventilation: easy | | | Attempts: 1 Airway type: laryngeal mask Size: 4 Cuffed: cuffed | | | Route, reference point: center of mouth Tube secured with: adhesive | | | tape Trauma: none Tube placement verification: carbon dioxide | | | detection, equal bilateral breath sounds and bilateral chest rise | | | Performing provider: TAMI MANRIQUEZ Comments: Smooth IV | | | induction. LMA placed and well seated. Secured in place. Breathing | | | Circuit attached to LMA. BSEB/ETCO2 (auscultation and | | | capnography) and placement confirmed. | | + + + documented in this encounter Visit Diagnoses Not on filedocumented in this encounter Administered Medications + +--------+ +------+------+------+ | Medication Order | MAR | Action | Dose | Rate | Site | | | Action | Date | | | | + +--------+ +------+------+------+ | dexamethasone (DECADRON) 10 | Given | 03/10/20 | 6 mg | | | | mg/mL injection Intravenous, | | 16 10:15 | | | | | PRN, Starting Sun03/10/16 at 1015, | | AM PDT | | | | | Anesthesia Intra-op | | | | | | + +--------+ +------+------+------+ +---+---+ | | | +---+---+ + +-------+ +--------+---+---+ | fentaNYL (PF) injection PRN, | Given | 03/10/20 | 50 mcg | | | | Pain, Starting Sun03/10/16 at | | 16 10:17 | | | | | 1015, Anesthesia Intra-op | | AM PDT | | | | + +-------+ +--------+---+---+ +-------+ +--------+---+---+ | Given | 03/10/20 | 50 mcg | | | | | 16 10:15 | | | | | | AM PDT | | | | +-------+ +--------+---+---+ +---+---+ | | | +---+---+ + +-------+ +--------+---+---+ | levofloxacin in dextrose | Given | 03/10/20 | 500 mg | | | | (LEVAQUIN) IVPB 500 mg 500 mg, | | 16 10:15 | | | | | Intravenous, Administer over 60 | | AM PDT | | | | | Minutes, SHIPPING AGENT, Starting Fri | | | | | | | 03/10/16 at 0916, For 1 dose, | | | | | | | Pre-op, Indications: Surgical | | | | | | | Prophylaxis | | | | | | + +-------+ +--------+---+---+ +---+---+ | | | +---+---+ + +-------+ +------+---+---+ | midazolam (VERSED) 1 mg/mL | Given | 03/10/20 | 2 mg | | | | injection Intravenous, PRN, | | 16 10:15 | | | | | Anxiety, Starting Sun03/10/16 at | | AM PDT | | | | | 1015, Anesthesia Intra-op | | | | | | + +-------+ +------+---+---+ +---+---+ | | | +---+---+ + +-------+ +------+---+---+ | ondansetron (ZOFRAN) injection | Given | 03/10/20 | 4 mg | | | | Intravenous, PRN, Nausea, | | 16 10:15 | | | | | Vomiting, Starting Sun03/10/16 at | | AM PDT | | | | | 1015, Anesthesia Intra-op | | | | | | + +-------+ +------+---+---+ +---+---+ | | | +---+---+ + +-------+ +--------+---+---+ | propofol (DIPRIVAN) injection | Given | 03/10/20 | 175 mg | | | | PRN, Starting Sun03/10/16 at 1017, | | 16 10:17 | | | | | Anesthesia Intra-op | | AM PDT | | | | + +-------+ +--------+---+---+ +---+---+ | | | +---+---+ + +---------+ + +-------+---+ | propofol (DIPRIVAN) injection | New Bag | 03/10/20 | 25 | 14.1 | | | Intravenous, CONTINUOUS PRN, | | 16 10:26 | mcg/kg/m | mL/hr | | | Starting Sun03/10/16 at 1026, | | AM PDT | in | | | | Anesthesia Intra-op | | | | | | + +---------+ + +-------+---+ +---+---+ | | | +---+---+ documented in this encounter"
--- OUTSIDE RECORDS SUMMARY | ~2019-11-21 | XMS | Clinical Summary ---
Demographics + + + | Address | [address] | | | [place] [address] | + + + | Home Phone | | + + + | Preferred Language | Unknown | + + + | Marital Status | Single | + + + | Pentecostalism Affiliation | Unknown | + + + | Race | Unknown | + + + | Ethnic Group | Unknown | + + + Author + + + | Author | [facility] | | | and [place] | + + + | Organization | [facility] | | | [...] [place] | | | | | [address] | | + + + + + Care Team Providers + +------+ + | Care Brand Engineer Name | Role | Phone | + [...] Left: | DARIEN | | 10/25/ | [id number] | | - [id number]: Qty: 1 | | Ureter | [employer] | | 2018 | / | | on 03/10/2016 by Leidy, | | | - DARIEN | | | /[id number] | | John Peralta MD at [facility] | | | | | | 86 | | [facility] | | | | | | | [...] | | + +--------+ +--------+ +---------+------+ | [facility] | UNITED | [id number] | 08/09/19 | [phone] | | PPO [...] | | | 1 (Home) | [place] [address] | + +--------+ +--------+ + + Advance Directives + + + + + | Type | Date Recorded | Patient | Explanation | | | | Php Architect | | + + + + + | Power of | | | | | Welfare Aide | | | | + + + [...]
--- OUTSIDE RECORDS SUMMARY | ~2019-11-21 | XMS | Encounter Summary ---
Demographics + + + | Address | [address] | | | [place] [address] | + + + | Home Phone | | + + + | Preferred Language | Unknown | + + + | Marital Status | Single | + + + | Druze Affiliation | Unknown | + + + | Race | Unknown | + + + | Ethnic Group | Unknown | + + + Author + + + | Author | [facility] | | | and [place] | + + + | Organization | [facility] | | | [...] [place] | | | | | [address] | | + + + + + Care Team Providers + +------+ + | Care Machine Sizer Name | Role | Phone | + +------+ + | Rick Iraheta MD | PCP | | + +------+ + Reason for Visit +--------+ + | Reason | Comments | +--------+ + | Other | RESULTS FROM KIDNEY [facility] | +--------+ + Encounter Details +--------+ + + + + | Date | Type | Department | Care Team | Description | +--------+ + + + + | 04/06/ | Telephone | [facility] | John Forbes, | Other (RESULTS FROM | | 2016 | | [address] | [address] | KIDNEY STONE) | | | | [place] | [place] | | | | | [address] | [address] | | | | | [phone] | | | +--------+ + + + [...]
--- OUTSIDE RECORDS SUMMARY | ~2019-11-21 | XMS | Encounter Summary ---
Demographics + + + | Address | [address] | | | [place] [address] | + + + | Home Phone | | + + + | Preferred Language | Unknown | + + + | Marital Status | Single | + + + | Restorationist Affiliation | Unknown | + + + | Race | Unknown | + + + | Ethnic Group | Unknown | + + + Author + + + | Author | [facility] | | | and [place] [...] [place], [place] | | | | | [address] | | + + + + + Care Team Providers + +------+ + | Care Nutter Up Name | Role | Phone | + [...] | | | | | | | [place] | | | | | | | [...] + + | 03/10/ | Surgery | [facility] | John Forbes, | Left Ureteroscopy | | 2016 | | MED CTR OR INTRA OP | MD Lonnie IBARRA | with Laser | | | | [address] | [place] | Lithotripsy and Left | | | | [place], [place] | [address] | Stent Placement | | | | [address] | | | | | | [phone] | | | +--------+---------+ + + + [...] time. Follow up: Call Dr Forbes's office ([phone]) to set up your follow-up appointment or [...] | | | | | [place] [address] | | | | + + + [...] | [address] | [place] [address] | [phone] | + + + + + LABS [...] | | | | | | use [place] 10/325 if ordered. If | | | [...]
--- OUTSIDE RECORDS SUMMARY | ~2019-11-21 | XMS | Encounter Summary ---
Demographics + + + | Address | [address] | | | [place] [address] | + + + | Home Phone | | + + + | Preferred Language | Unknown | + + + | Marital Status | Single | + + + | Sikhism Affiliation | Unknown | + + + | Race | Unknown | + + + | Ethnic Group | Unknown | + + + Author + + + | Author | [facility] | | | and [place] | + + + | Organization | [facility] | | | [...] [place], [place] | | | | | [address] | | + + + + + Care Team Providers + +------+ + | Care Metal Plater Name | Role | Phone | + [...] | | | | | | | [place] | | | | | | | [...] | | | | | [address] | [address] | | | | | [place], [place] | [place] [address] | | | | | [address] | [phone] | | | | | [phone] | | | | | | | Kendall Marquez MD | | | | | | [address] | | | | | | [place] | | | | | | [address] | | | | | | | [...] [address] | | eral | Forearm; [id number] catheter | Millie Florez RN | Millie [...] PDT | | | | | Minutes, OBSTETRICS NURSE PRACTITIONER, Starting Fri | | | | | [...]
--- OUTSIDE RECORDS SUMMARY | ~2019-11-21 | XMS | Encounter Summary ---
Demographics + + + | Address | [address] | | | [place] [address] | + + + | Home Phone [...] | Author | [facility] | | | and [place] [...] [address] | | | | | [place], [place] | | | | | [address] | | + + + + + Care Team Providers + +------+ + | Care Laundry Manager Name | Role | Phone | + +------+ + | No, Physician | PCP | Unavailable | + +------+ + Reason for Referral Evaluate & Treat (Emergency) +--------+ + + + + + | Status | Reason | Specialty | Diagnoses / | Referred By | Referred To | | | | | Procedures | Contact | Contact | +--------+ + + + + + | Closed | Specialty | Urology | Diagnoses | [place], | [place], | | | Services | | Left | John Peralta MD | John Peralta MD | | | Required | | ureteral | [address] | | | | | calculus | AVE [place] | [place] | | | | | Procedures | [place], [place] | [place], [place] | | | | | [place] | [address] | [address] Phone: | | | | | CYSTO/URETER | Phone: | [phone] | | | | | O | [phone] | Fax: | | | | | W/LITHOTRIPS | Fax: | [phone] | | | | | Y &INDWELL | [phone] | | | | | | STENT INSRT | | | +--------+ + + + + + Reason for Visit + + + | Reason | Comments | + + + | Nephrolithiasis | | + + + Evaluate & Treat (Routine) +--------+--------+ + + + + | Status | Reason | Specialty | Diagnoses / | Referred By | Referred To | | | | | Procedures | Contact | Contact | +--------+--------+ + + + + | Closed | | Urology | Diagnoses | | [place], | | | | | NEW/ER | Physicians-M | John Peralta MD | | | | | FOLLOW UP | mc, Er | [address] | | | | | Procedures | | [place] | | | | | NEW PATIENT | | [place] | | | | | | | [address] Phone: | | | | | | | [phone] | | | | | | | Fax: | | | | | | | [phone] | +--------+--------+ + + + + Encounter Details +--------+---------+ + + + | Date | Type | Department | Care Team | Description | +--------+---------+ + + + | 03/09/ | Office | [facility] | John Forbes, | Left ureteral | | 2016 | Visit | [address] | [address] | calculus (Primary | | | | [place], [place] | [place] | Dx); Microscopic | | | | [id number] | [id number] | hematuria; Renal | | | | [phone] | | colic on left side | +--------+---------+ + + + Social History [...] + + + | Blood Pressure | 130/70 | 03/09/2016 2:54 PM | | | | | PDT | | + + + + + | Pulse | 90 | 03/09/2016 2:54 PM | | | | | PDT | | + + + + + | Temperature | - | - | | + + + + + | Respiratory Rate | 21 | 03/09/2016 2:54 PM | | | | | PDT | | + + + + + | Oxygen Saturation | - | - | | + + + + + | Inhaled Oxygen | - | - | | | Concentration | | | | + + + + + | Weight | 97.6 kg (215 lb 1.6 | 03/09/2016 2:54 PM | | | | oz) | PDT | | + + + + + | Height | 177.8 cm (5' 10") | 03/09/2016 2:54 PM | | | | | PDT | | + + + + + | Body Mass Index | 30.86 | 03/09/2016 2:54 PM | | | | | PDT | | + + + + + documented in this encounter Patient Instructions Patient Instructions Dorothy Bradley RN - 03/09/2016 4:58 PM PDTPreoperative Instructi ons Your surgery with Dr. John Forbes has been scheduled for March 10, 2016 at 2:30 PM at [facility]. Please report [facility] no later than 1:00 PM. REMEMBER: NOTHING TO EAT OR DRINK AFTER MIDNIGHT March 09, 2016. NO ASPIRIN OR ASPIRIN PRODUCTS ONE WEEK PRIOR TO SURGERY. Tylenol and Advil are OK. Call us at [phone] with any questions. [x] Pain management booklet provided to patient. Drink lots of water to keep urine dilute at all times. Ideally, you should drink enough nancy er to produce 2 liters of urine every [...] encounter Progress Notes John Forbes MD - 03/09/2016 2:50 PM PDTFormatting of this note might be different fro m the original. Dimitri is a 45 y.o. male patient being seen today for an emergency room follow up for kidn ey stones. Dimitri reports sudden onset of left flank and left lower quadrant abdominal pain on approx imately 02/20/2016. He thought that his pain may have been related to "gas," but his pain in tensified and became severe, so he was seen in the emergency department at [facility]. He underwent CT imaging which demonstrated a 6 mm distal left ureteral stone. Jenny ag was treated and released. Unfortunately, he indicates that he was not given Flomax or a u rine strainer. He states that he did well in the interim, with only a mild amount of intermittent pain, un til approximately 03/06/2016, when his pain became severe again. Ultimately, his pain became intolerable, so he presented to the emergency department at [facility] on 03/08. Repeat CT imaging was performed which demonstrated modest amount of distal migration of his left ureteral stone, which measured 4 mm. He was given Flomax, and a urine strainer , and pain was controlled with analgesics, and he was discharged home, with instructions to follow-up in my office today. He states that he did well after his discharge from the emergency department last night, bu t had recurrence of pain again this morning, so he went to the emergency room at [facility] this morning. We called [facility] for records, but there is no ER record from this v isit submitted to my office by fax. He states that today he has had increasing urinary urgency and frequency, but urinary volum e seems diminished. He denies any gross hematuria. He initially had nausea and vomiting earlier this month, bu t has had none recently. He denies any fever or chills. He states that his pain is still i n the left lower quadrant region. He denies any radiation of the pain. He can think of no aggravating or alleviating factors. He denies any changes in his bowel habits. He denies any hematochezia or melena or constip ation or diarrhea. He denies any radiculopathy symptoms. He denies any cough or chest pain or shortness breat h or hemoptysis. Earlier this month, he felt like he had fever and chills, but this has resolved. He has no vasquez intermittent headaches, change in appetite and weight and energy, tremors, dizzy spells, too hot/cold, tired/sluggish, abdominal pain, nausea and vomiting, rapid heart rate at time s, high blood pressure, back pain, otherwise, 10 point review of systems today is negative. He states that he drinks a lot of water, and "doesn't drink much" coffee or soda. He is single, has 1 child. He works in building maintenance. He lives in [place]. No k yolandan family history of prostate cancer or nephrolithiasis. His mother at age 59 with b reast cancer. Over 45 minute encounter with Dimitri today, over 50% of this time spent counseling regardi ng his ureteral calculus, hydronephrosis, renal colic, medical and surgical treatment option s available, including nontreatment, and dietary recommendations to reduce his risk of stone disease. Past Medical History He has a past medical history of ACL injury tear (02/02/16). Past Surgical History He has no past surgical history on file. Family History: His family history includes Stroke (age of onset: 80) in his maternal grandmother; Stroke ( age of onset: 92) in his maternal grandfather. Social History: He reports that he has been smoking Cigarettes. He has been smoking about 0.25 packs per d ay. He does not have any smokeless tobacco history on file. He reports that he drinks alcoho l. He reports that he does not use illicit drugs. No Known Allergies Medications: Outpatient Encounter Prescriptions as of 03/09/2016 Medication Sig Dispense Refill ondansetron (ZOFRAN ODT) 4 mg disintegrating tablet Take 4 mg by mouth every 8 hours as needed for Nausea. oxyCODONE-acetaminophen (PERCOCET) 5-325 mg per tablet Take 1-2 tablets by mouth every 6 hours as needed for Pain. For renal stones tamsulosin (FLOMAX) 0.4 mg CAPS Take 1 capsule by mouth Daily. 30 capsule 0 No facility-administered encounter medications on file as of 03/09/2016. REVIEW OF SYSTEMS: [] All Negative Constitutional Symptoms: []Fever []Chills []Headache []Change in appetite [] Change in weight [] Change in energy []Other: Neurological: [x]Tremors [x]Dizzy Spells []Numbness/Tingling []Seizures []Other: Endocrine: []Excessive thirst [x]Too hot [x] Too cold [x]Tired/Sluggish Gastrointestinal: [x]Abdominal pain [x]Nausea/vomiting []Indigestion/heartburn []Change in stool size [] Sandie nge in stool shape [] Change in stool color []Pain with swallowing []Other: Cardiovascular: []Chest Pain [x]Rapid heart rate [x]High blood pressure []Other: Integumentary: []Skin rash []Boils []Persistent itch []Other: Musculoskeletal: []Neck Pain []Joint swelling/pain [x]Back pain []Bone pain []Other: Respiratory: []Wheezing []Frequent cough []Shortness of breath []Other: Hematologic/Lymphatic: []Swollen glands []Blood clotting problems []Prior blood transfusions []Other: Psychologic: Are you generally satisfied with your life? yes Do you feel severely depressed? no Have you considered suicide? no Other: Habits: Do you smoke? yes [x] Yes [] No Patient advised to follow up with PCP regarding positive review of syste ms. FERNÁNDEZ BPH SYMPTOM SCORE Not at all Less than 1 times in 5 Less than half the time About half the time More than half the time Almost always INCOMPLETE EMPTYING Over the past month, how often have you had the sensation of not empty ing your bladder completely after you finished urinating? [] 0 [] 1 [] 2 [] 3 [] 4 [x] 5 FREQUENCY Over the past month, how often have you had to urinate again less than 2 hours a fter you finished urinating? [] 0 [] 1 [] 2 [] 3 [] 4 [x] 5 INTERMITTENCY Over the past month, how often have you found you stopped and started again several times when you urinated? [x] 0 [] 1 [] 2 [] 3 [] 4 [] 5 URGE TO URINATE Over the past month, how often have you found it difficult to postpone uri nation? [] 0 [] 1 [] 2 [x] 3 [] 4 [] 5 WEAK STREAM Over the past month, how often have you had a weak urinary stream? [] 0 [] 1 [] 2 [] 3 [] 4 [x] 5 STRAINING Over the past month, how often have you had to push or strain to begin urination ? [] 0 [] 1 [] 2 [x] 3 [] 4 [] 5 None 1 time 2 times 3 times 4 times 5 or more times URINATING AT NIGHT Over the past month, how many times did you most typically get up to ur inated from the time you went to bed at night until the time you got up in the morning? [] 0 [] 1 [] 2 [] 3 [x] 4 [] 5 Symptom Score: Mild 1-7, Moderate 8-19, Severe 20-35 TOTAL: 25 BOTHER SCORE DUE TO URINARY SYMPTOMS Delighted Pleased Mostly Satisfied Mixed Mostly dissatisfied Unhappy Terrible BOTHERSOMENESS OF URINARY SYMPTOMS How would you feel if you had to live with your urinary condition the way it is now, no better, no worse, for the rest of your life? [] 0 [] 1 [] 2 [] 3 [] 4 [] 5 [x] 6 PHYSICAL EXAM Vitals: BP 130/70 mmHg | Pulse 90 | Resp 21 | Ht 1.778 m (5' 10") | Wt 97.569 kg (215 lb 1. 6 oz) | BMI 30.86 kg/m2 General: Awake, alert, in no acute [...] Chest: No rib or bony tenderness. Back: Mild left CVA tenderness. Abdomen: Soft, nondistended, bowel tones normal active, moderate left flank and LLQ tender ness. No hepatosplenomegaly. No masses. No guarding; benign. Bladder nondistended. Extremities: Non-edematous. Hips and long bones nontender to fist percussion. Neuro: Awake, alert, oriented x3. Normal station and gait. Psychiatric: Mood and affect are normal. Normal judgment. Skin: Warm and dry, no erythematous rash. Genitalia: No lesion. Normal in appearance. DIAGNOSTIC DATA: Lab Results Component Value Date COLORPOC Dark Yellow* 03/09/2016 CLARITYU Clear 03/09/2016 GLUCOSEPOC Negative 03/09/2016 BILIPOC Negative 03/09/2016 SG 1.020 03/09/2016 RBCUR Trace* 03/09/2016 PHUAPOC 5.0 03/09/2016 PROTEINPOC 1+* 03/09/2016 UROBILINOGEN 0.2 03/09/2016 NITRITEPOC Negative 03/09/2016 LEUKOCYTESUR Negative 03/09/[address] ABDOMEN AND PELVIS 03/08/2016 5:06 PM CLINICAL HISTORY: ABDOMINAL PAIN AND URINARY FREQUENCY, HISTORY OF KIDNEY STONES COMPARISON: CT abdomen and pelvis February 19 TECHNIQUE: Axial unenhanced images are performed through the abdomen and pelvis. Coronal and sagittal reformations are also performed. ABDOMEN FINDINGS: Minimally imaged lung bases are unremarkable. Portions of the liver, stomach, spleen, pancreas and adrenal glands are not imaged. Imaged portions of these organs have an unremarkable unenhanced appearance, along with the gallbladder. The previously evident 4 mm left ureteral calculus has migrated slightly more distally, and is positioned approximately 1.5 cm proximal to the ureterovesical junction. Previously visible mild hydroureteronephrosis has resolved and periureteral inflammation has significantly improved as well. No other renal or ureteral calculus is evident. No renal parenchymal abnormality is visible on this unenhanced exam. The bowel and appendix are unremarkable, without evidence of obstruction or inflammation. No free air, ascites, or pathologic lymph node enlargement is evident. There is a small, fat-containing umbilical hernia. Small Schmorl's nodes are present within lumbar vertebral endplates. The bones and soft tissues are otherwise unremarkable. PELVIS FINDINGS: The bladder is mostly decompressed and not well evaluated. The prostate and seminal vesicles are unremarkable. Rounded deep pelvic calcifications persist and are consistent with phleboliths. Tiny, fat-containing inguinal hernias are suggested. Mildly prominent bilateral inguinal lymph nodes measure up to 1.4 cm short axis on the right on image 134. No free air or ascites is evident. The bones and soft tissues are unremarkable. IMPRESSION - 1. INTERVAL MIGRATION [...] Rodriguez Griffin MD Electronically signed: 03/08/2016 5:34 (Images personally reviewed with the patient today) CT imaging 02/20/2016 at [facility] demonstrates mild left hydronephrosis wi th a 5.5 mm distal left ureteral stone. CBC 02/20/2016 shows WBC 8.9, hemoglobin 15.9, platelets 269. Urinalysis 02/20/2016 shows 5 RBC, 0 WBC, no bacteria. Chemistry panel 02/20/2016 shows glucose 160, creatinine 1.03, sodium 142, potassium 3.9, ch loride 109, CO2 22, calcium 9.6. Urinalysis 03/09/2016 at [facility] demonstrates 2 WBC, 30 RBC, no bacteria. AUA symptom score is 25. KUB today demonstrates multiple phleboliths in the pelvis. There is a calcification in the left pelvis overlying the edge of the sacrum which may represent a distal left ureteral myra culus. IMPRESSION: 1. 4-5.5 mm distal left ureteral calculus. 2. Mild left hydronephrosis. Resolved on updated CT. 3. Intermittent left renal colic. 4. Microhematuria. Secondary to his left ureteral calculus. PLAN: I sent Dimitri up to the x-ray department for a follow-up KUB. His KUB demonstrates multip le phleboliths, but also appears to demonstrate persistence of a calcification in the vicini ty of the distal left ureter, unchanged in comparison with CT imaging. I discussed with Dimitri that I couldn't definitively rule out passage of his stone, but th at a CT scan would be definitive. He does not wish to proceed with a repeat CT. Since he has not yet passed his stone, and because of his persistent, recurrent, intermitte nt colic, he requests surgical intervention. I gave Dimitri a pamphlet describing kidney stones and treatment options available. We rev iewed this together. I gave Dimitri a pamphlet describing kidney stones and the various treatment options ricky boucher, which we reviewed together. We discussed performing ESWL vs ureteroscopy with laser li thotripsy vs PCNL (percutaneous nephrostolithotomy) vs seeking a second opinion vs doing not sarah. After a lengthy discussion, he elects to proceed with ureteroscopy with laser lithotripsy. The risks, benefits, and alternatives of cystoscopy, and left ureteroscopy with laser litho tripsy (and possible stone extraction), and left ureteral stent placement are discussed with Dimitri in detail. I told him that this procedure may not render him stone free, necessit ating additional procedures in the future. Risks are to include, but are not limited to bleeding, pain, infection, failure of the proc edure, inability to retrieve or remove or fragment the stone, failure to diagnose, ureteral injury, ureteral perforation, ureteral avulsion with its severe sequelae of damage to the ki dney or need for subsequent surgical corrective procedures, potential need for additional pr ocedures, inherent irritability and discomfort associated with a ureteral stent, inherent ri sks of any surgical procedure and anesthesia including DVT, PE, MN, CVA, and even . Dimitri indicates his understanding, and indicates a desire to proceed as outlined. No gua rantees are given or implied. A surgical date is chosen. Dimitri is given appropriate written and verbal preoperative ins tructions. I instructed Dimitri to continue to strain his urine, and if he should pass his stone prior to his surgery, his surgery can be canceled. Elements of a kidney stone risk reduction diet are reviewed with Dimitri in detail. I ministerio mmended that he increase water intake to target a urinary output of 2 L per day. I recommen ded a low oxalate diet, with instructions to minimize oxalate consumption to 40-50 mg per da y. I also recommended a low sodium, low animal protein, low fat, high citrate diet. Dimitri is instructed to resume their usual [...] have not thoroughly proofread this note, and machine stoppage frequency checker erro rs may occur. CC: Dr Iraheta documented in this en counter Plan of Treatment + + +--------+ + + | Name | Type | Priori | Associated Diagnoses | Order Schedule | | | | ty | | | + + +--------+ + + | Ambulatory referral | Outpatient | STAT | Left ureteral | Expected: | | to Urology | Referral | | calculus | 03/10/2016, Expires: | | | | | | 03/17/2016 | + + +--------+ + + documented as of this encounter Procedures + +--------+ + + + | Procedure Name | Priori | Date/Time | Associated Diagnosis | Comments | | | ty | | | | + +--------+ + + + | URINALYSIS, | Routin | 03/09/2016 | Microscopic | Results for this | | MICROSCOPIC ONLY, | e | 2:59 PM | hematuria | procedure are in the | | WITH CULTURE IF | | PDT | | results section. | | INDICATED | | | | | + +--------+ + + + | CULTURE, URINE | Routin | 03/09/2016 | Microscopic | Results for this | | | e | 2:59 PM | hematuria | procedure are in the | | | | PDT | | results section. | + +--------+ + + + | POCT URINALYSIS, | Routin | 03/09/2016 | Microscopic | Results for this | | AUTO WITH CONF | e | 2:58 PM | hematuria | procedure are in the | | | | PDT | | results section. | + +--------+ + + + documented in this encounter Results XR Abdomen AP (03/09/2016 4:17 PM PDT) + + | Specimen | + + | | + + + + + | Narrative | Performed At | + + + | XR ABDOMEN 1 VW 03/09/2016 4:17 PM HISTORY: Left ureteral | [facility] | | calculus. COMPARISON: CT scan 03/08/2016. FINDINGS: There are | . [facility] | | multiple calcifications in the pelvis consistent with phleboliths. One | [facility] | | calcification in the left mid pelvis could represent the previously | - IMAGING | | observed left ureteral stone that is in a similar position compared | | | to the prior CT scan from 03/08/2016. There is a nonobstructive bowel | | | gas pattern with no definite evidence for free air. Moderate stool | | | retention is seen. There are no acute osseous abnormalities. | | | IMPRESSION - Multiple pelvic phleboliths with one calcification in | | | the left mid pelvis that could represent the previously observed left | | | ureteral stone that is in a similar position. Dictated and | | | Signed by: Obey Hubbard MD Electronically signed: 03/09/2016 5:05 PM | | | | | + + + + + | Procedure Note | + + | Bonifacio, Rad Results In - 03/09/2016 5:08 PM PDT XR ABDOMEN 1 VW 03/09/2016 4:17 PM | | | | HISTORY: Left ureteral calculus. | | | | COMPARISON: CT scan 03/08/2016. | | | | FINDINGS: | | There are multiple calcifications in the pelvis consistent with phleboliths. One | | calcification in the left mid pelvis could represent the previously observed | | left ureteral stone that is in a similar position compared to the prior CT scan | | from 03/08/2016. There is a nonobstructive bowel gas pattern with no definite | | evidence for free air. Moderate stool retention is seen. There are no acute | | osseous abnormalities. | | | | IMPRESSION - | | Multiple pelvic phleboliths with one calcification in the left mid pelvis that | | could represent the previously observed left ureteral stone that is in a similar | | position. | | | | Dictated and Signed by: Obey Hubbard MD | | Electronically signed: 03/09/2016 5:05 PM | + + + + + + + | Performing | Address | City/State/Zipcode | Phone Number | | Organization | | | | + + + + + | [facility] | [address] | [place] | [phone] | | [facility] | | [address] | | | - IMAGING | | | | + + + + + Culture, Urine (03/09/2016 2:59 PM PDT) + + + + + + | Component | Value | Ref Range | Performed | Pathologist | | | | | At | Signature | + + + + + + | Culture | No Growth | | [facility] | | | | | | [facility] | | | | | | MEDICAL | | | | | | CENTER - | | | | | | LABORATORY | | + + + + + + + + | Specimen | + + | Urine - Urine | | specimen obtained by | | clean catch | | procedure (specimen) | + + + + + + + | Performing | Address | City/State/Zipcode | Phone Number | | Organization | | | | + + + + + | [facility] | [address] | [place] | [phone] | | [facility] | | [address] | | | - LABORATORY | | | | + + + + + Urinalysis, Microscopic Only, with Culture if Indicated (03/09/2016 2:59 PM PDT) + + + + + + | Component | Value | Ref Range | Performed | Pathologist | | | | | At | Signature | + + + + + + | White Blood | 5-10 (A) | 0 - 2 /HPF | [facility] | | | Cells, | | | [facility] | | | Urine | | | MEDICAL | | | | | | CENTER - | | | | | | LABORATORY | | + + + + + + | Red Blood | 5-10 (A) | 0 - 2 /HPF | [facility] | | | Cells, | | | [facility] | | | Urine | | | MEDICAL | | | | | | CENTER - | | | | | | LABORATORY | | + + + + + + | Squamous | 15-25 (A) | 0 - 2 /LPF | [facility] | | | Epithelial | | | [facility] | | | Cells, | | | MEDICAL | | | Urine | | | CENTER - | | | | | | LABORATORY | | + + + + + + | Bacteria, | Negative | Negative /HPF | [facility] | | | Urine | | | [facility] | | | | | | MEDICAL | | | | | | CENTER - | | | | | | LABORATORY | | + + + + + + | Mucus, | Present (A) | Negative /LPF | [facility] | | | Urine | | | [facility] | | | | | | MEDICAL | | | | | | CENTER - | | | | | | LABORATORY | | + + + + + + | Hyaline | 25-50 (A) | 0 - 2 /LPF | [facility] | | | Casts, | | | [facility] | | | Urine | | | MEDICAL | | | | | | CENTER - | | | | | | LABORATORY | | + + + + + + | Urine | Urine Culture Set Up | | [facility] | | | Comment | | | [facility] | | | | | | MEDICAL | | | | | | CENTER - | | | | | | LABORATORY | | + + + + + + + + | Specimen | + + | Urine - Urine | | specimen obtained by | | clean catch | | procedure (specimen) | + + + + + + + | Performing | Address | City/State/Zipcode | Phone Number | | Organization | | | | + + + + + | [facility] | [address] | [place] | [phone] | | [facility] | | [address] | | | - LABORATORY | | | | + + + + + POCT Urinalysis Dipstick Automated (03/09/2016 2:58 PM PDT) + + + + + + | Component | Value | Ref Range | Performed | Pathologist | | | | | At | Signature | + + + + + + | Color, UA, | Dark Yellow (A) | Yellow, Light | | | | POC | | Yellow | | | + + + + + + | Clarity, | Clear | | | | | UA, POC | | | | | + + + + + + | Glucose, | Negative | Negative | | | | UA, POC | | | | | + + + + + + | Bilirubin, | Negative | Negative | | | | UA, POC | | | | | + + + + + + | Ketones, | Negative | Negative, 100 | | | | UA, POC | | mg/dL | | | + + + + + + | Specific | 1.020 | 1.001 - 1.030 | | | | Benedict, | | | | | | UA, POC | | | | | + + + + + + | Blood, UA, | Trace (A) | Negative | | | | POC | | | | | + + + + + + | pH, UA, POC | 5.0 | 5.0, 6.0, 7.0, | | | | | | 8.0, 5.5, 6.5, | | | | | | 7.5 | | | + + + + + + | Protein, | 1+ (A) | Negative | | | | UA, POC | | | | | + + + + + + | Urobilinoge | 0.2 | 0.2, Negative, | | | | n, UA, POC | | Normal, < 0.2 | | | | | | mg/dL, 1 mg/dL, | | | | | | < 0.2 E.U./dl, | | | | | | 1.0 E.U./dL, | | | | | | 0.2 mg/dL | | | + + + + + + | Nitrite, | Negative | Negative | | | | UA, POC | | | | | + + + + + + | Leukocyte | Negative | Negative | | | | Esterase, | | | | | | UA, POC | | | | | + + + + + + | Reducing | | | | | | Substances, | | | | | | Urine | | | | | + + + + + + | Bilirubin | | Negative | | | | Confirmatio | | | | | | n by | | | | | | Ictotest, | | | | | | Urine | | | | | + + + + + + | Remark | | | | | + + + + + + + + | Specimen | + + | Urine specimen | | (specimen) | + + documented in this encounter Visit Diagnoses + + | Diagnosis | + + | Left ureteral calculus - Primary Calculus of ureter | + + | Microscopic hematuria | + + | Renal colic on left side Renal colic | + + documented in this encounter
--- OUTSIDE RECORDS SUMMARY | ~2019-11-21 | XMS | Encounter Summary ---
Demographics + + + | Address | [address] | | | [place] [address] | + + + | Home Phone | | + + + | Preferred Language | Unknown | + + + | Marital Status | Single | + + + | Mormonism Affiliation | Unknown | + + + | Race | Unknown | + + + | Ethnic Group | Unknown | + + + Author + + + | Author | [facility] | | | and [place] | + + + | Organization | [facility] | | | and [place] | + + + | Address | Unknown | + + + | Phone | Unavailable | + + + Support + + + + + | Name | Relationship | Address | Phone | + + + + + | Hayley Flores | ECON | [address] | | | | | [place] | | | | | [address] | | + + + + + Care Team Providers + +------+ + | Care Body Builder Name | Role | Phone | + +------+ + | No, Physician | PCP | Unavailable | + +------+ + Encounter Details +--------+ + + + + | Date | Type | Department | Care Team | Description | +--------+ + + + + | 03/09/ | Hospital | [facility] | John Forbes, | Pelon ureteral | | 2016 | Encounter | MED CTR XRAY [address] | [address] | calculus | | | | [place] | [place], [place] | | | | | [place] [address] | [address] | | | | | [phone] | | | +--------+ + + + [...] | + +--------+ + + + | XR ABDOMEN AP | Routin | 03/09/2016 | Left ureteral | Results for this | | | e | 4:17 PM | calculus | procedure are in the | | [...] CT scan 03/08/2016. FINDINGS: There are | [facility] | | multiple calcifications in the pelvis consistent with phleboliths. One [facility] | | calcification in the left mid [...] + + | [facility] | [address] | [place] | [phone] | | [facility] | | [address] | | | - IMAGING | | | | + + + + + documented in this encounter Visit Diagnoses + + | Diagnosis | + + | Left ureteral calculus Calculus of ureter | + + documented in this encounter"
--- OUTSIDE RECORDS SUMMARY | ~2019-11-21 | XMS | Encounter Summary ---
Demographics + + + | Address | [address] | | | [place] [address] | + + + | Home Phone | | + + + | Preferred Language | Unknown | + + + | Marital Status | Single | + + + | Zoroastrianism Affiliation | Unknown | + + + | Race | Unknown | + + + | Ethnic Group | Unknown | + + + Author + + + | Author | [facility] | | | and [place] | + + + | Organization | [facility] | | | [...] [place], [place] | | | | | [address] | | + + + + + Care Team Providers + +------+ + | Care Chief Executive Name | Role | Phone | [...] | | | | | | | [place] | | | | | | | [...] + + | 03/10/ | Hospital | [facility] | John Forbes, | | | 2016 | Encounter | MED CTR XRAY [address] | MD Lonnie [address] | | | | | [place] | [place] | | | | | [place] [address] | [address] | | | | | [phone] | | | +--------+ + + + [...]
--- OUTSIDE RECORDS SUMMARY | ~2019-11-21 | XMS | Encounter Summary ---
Demographics + + + | Address | [address] | | | [place] [address] | + + + | Home Phone | | + + + | Preferred Language | Unknown | + + + | Marital Status | Single | + + + | Anglican Affiliation | Unknown | + + + | Race | Unknown | + + + | Ethnic Group | Unknown | + + + Author + + + | Author | [facility] | | | and [place] | + + + | Organization | [facility] | | | [...] [place] | | | | | [address] | | + + + + + Care Team Providers + +------+ + | Care Maintenance And Utilities Supervisor Name | Role | Phone | [...] [place] | | | | | [address] | [address] | | | | | [phone] | | | +--------+ + + + [...]
--- OUTSIDE RECORDS SUMMARY | ~2019-11-21 | XMS | Encounter Summary ---
Demographics + + + | Address | [address] | | | [place] [address] | + + + | Home Phone | | + + + | Preferred Language | Unknown | + + + | Marital Status | Single | + + + | Taoism Affiliation | Unknown | + + + | Race | Unknown | + + + | Ethnic Group | Unknown | + + + Author + + + | Author | [facility] | | | and [place] | + + + | Organization | [facility] | | | and [...] [place] | | | | | [address] | | + + + + + Care Team Providers + +------+ + | Care Auto Mechanic Supervisor Name | Role | Phone | + +------+ + | No, Physician | PCP | Unavailable | + +------+ + Encounter Details +--------+ + + + + | Date | Type | Department | Care Team | Description | +--------+ + + + + | 03/09/ | Hospital | [facility] | John Forbes, | Pelon ureteral | | 2016 | Encounter | MED CTR XRAY [address] | [address] | calculus | | | | [place] | [place], [place] | | | | | [place] [address] | [address] | | | | | [phone] | | | +--------+ + + + [...] CT scan 03/08/2016. FINDINGS: There are | [facility] | | multiple calcifications in the pelvis consistent with phleboliths. One [facility] | | calcification in the left [...] ST. | [address] | [place] | [phone] | | [facility] | | [address] | | | - IMAGING | | | | + + + + + documented in this encounter Visit Diagnoses + + | Diagnosis | + + | Left ureteral calculus Calculus of ureter | + + documented in this encounter"
--- OUTSIDE RECORDS SUMMARY | ~2019-11-21 | XMS | Encounter Summary ---
Demographics + + + | Address | [address] | | | [place] [address] | + + + | Home Phone | | + + + | Preferred Language | Unknown | + + + | Marital Status | Single | + + + | Zoroastrianism Affiliation | Unknown | + + + | Race | Unknown | + + + | Ethnic Group | Unknown | + + + Author + + + | Author | [facility] | | | and [place] | + + + | Organization | [facility] | | | [...] [address], [place] | | | | | [address] | | + + + + + Care Team Providers + +------+ + | Care Bolt Labeler Name | Role | Phone | + [...] | Urology | Diagnoses | [place], | [place], | | | Services | | Left | John Peralta MD | John Peralta MD | | | Required | | ureteral | [address] | [address] | | | | | calculus | AVE [place] | [place] | | | | | Procedures | [place], [place] | [place], [place] | | | | | [place] | [address] | [address] Phone: | | | | | CYSTO/URETER | Phone: | [phone] | | | | | O | [phone] | Fax: | | | | | W/LITHOTRIPS | Fax: | [phone] | | | | | Y &INDWELL | [phone] | | | | | | STENT [...] | | Urology | Diagnoses | | [place], | | | | | NEW/ER | Physicians[facility] | John Peralta MD | | | | | FOLLOW UP | mc, Er | [address] | | | | | Procedures | | [place] | | | | | NEW PATIENT | | [place] | | | | | | | [address] Phone: | | | | | | | [phone] | | | | | | | Fax: | | | | | | | [phone] | +--------+--------+ + + + + Encounter Details +--------+---------+ + + + | Date | Type | Department | Care Team | Description | +--------+---------+ + + + | 03/09/ | Office | [facility] | John Forbes, | Left ureteral | | 2016 | Visit | [address] | [address] | calculus (Primary | | | | [place], [place] | [place] | Dx); Microscopic | | | | [address] | [address] | hematuria; Renal | | | | [phone] | | colic on left side | [...] March 10, 2016 at 2:30 PM at [facility]. [facility] no later than 1:00 PM. REMEMBER: NOTHING TO EAT OR DRINK AFTER MIDNIGHT March 09, 2016. NO ASPIRIN OR ASPIRIN PRODUCTS ONE WEEK PRIOR TO SURGERY. Tylenol and Advil are OK. Call us at [phone] with any questions. [x] Pain management booklet [...] was seen in the emergency department at [facility]. He underwent CT imaging which demonstrated [...] he presented to the emergency department at [facility] on 03/08. Repeat CT imaging was performed [...] he went to the emergency room at [facility] this morning. 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 No k yolandan family history of prostate [...] the patient today) CT imaging 02/20/2016 at [facility] demonstrates mild left hydronephrosis wi th a 5.5 mm distal left ureteral stone. CBC 02/20/2016 shows WBC 8.9, hemoglobin 15.9, platelets 269. Urinalysis 02/20/2016 shows 5 RBC, 0 WBC, no bacteria. Chemistry panel 02/20/2016 shows glucose 160, creatinine 1.03, sodium 142, potassium 3.9, ch loride 109, CO2 22, calcium 9.6. Urinalysis 03/09/2016 at [facility] demonstrates 2 WBC, 30 RBC, no bacteria. [...] surgical procedure and anesthesia including DVT, PE, TN, CVA, and even . Dimitri indicates his [...] have not thoroughly proofread this note, and commission broker erro rs may occur. CC: Dr Iraheta [...] the pelvis consistent with phleboliths. One | [facility] | | calcification in the left mid [...] + | [facility] | [address] | [place] | [phone] | | [facility] | | [address] | | | - IMAGING | | [...] [address] | [place] | [phone] | | [facility] | | [address] | | | - LABORATORY | | [...] [address] | [place] | [phone] | | [facility] | | [address] | | | - LABORATORY | | [...] 1.001 - 1.030 | | | | [place], | | | | | | UA, [...]
--- OUTSIDE RECORDS SUMMARY | ~2019-11-21 | XMS | Encounter Summary ---
Demographics + + + | Address | [address] | | | [place] [address] | + + + | Home Phone | | + + + | Preferred Language | Unknown | + + + | Marital Status | Single | + + + | Denominational Affiliation | Unknown | + + + | Race | Unknown | + + + | Ethnic Group | Unknown | + + + Author + + + | Author | [facility] | | | and [place] | + + + | Organization | [facility] | | [...] [place] | | | | | [address] | | + + + + + Care Team Providers + +------+ + | Care Technical Implementation Lead Name | Role | Phone | + [...] [place] | | | | | [address] | [address] | | | | | [phone] | | | +--------+ + + + [...]
--- OUTSIDE RECORDS SUMMARY | ~2019-11-21 | XMS | Encounter Summary ---
Demographics + + + | Address | [address] | | | [place] [address] | + + + | Home Phone | | + + + | Preferred Language | Unknown | + + + | Marital Status | Single | + + + | Hoahaoism Affiliation | Unknown | + + + | Race | Unknown | + + + | Ethnic Group | Unknown | + + + Author + + + | Author | [facility] | | | and [place] | + + + | Organization | [facility] | | | [...] [place] | | | | | [address] | | + + + + + Care Team Providers + +------+ + | Care General Repairer Name | Role | Phone | + [...] + + | 03/08/ | Emergency | [facility] | Rodrick Gonzalez, | Acute abdominal pain | | 2016 | | [facility] | MD [address] | in left flank | | | | CENTER [address] | [place], [place] | (Primary Dx); Renal | | | | [place], [place] | [address] | colic on left side | | | | [address] | | | | | | [phone] | | | +--------+ + + + [...] be sent through Care Everywhere.ABDOMINAL PAIN, ADULT (CHILEAN)KIDNEY STONE W/ COLIC (CHILEAN)documented in this encounter Medications at Time of [...]
--- OUTSIDE RECORDS SUMMARY | ~2019-11-21 | XMS | Encounter Summary ---
Demographics + + + | Address | [address] | | | [place] [address] | + + + | Home Phone | | + + + | Preferred Language | Unknown | + + + | Marital Status | Single | + + + | Moravian Affiliation | Unknown | + + + | Race | Unknown | + + + | Ethnic Group | Unknown | + + + Author + + + | Author | [facility] | | | and [place] | + + + | Organization | [facility] | | | [...] [place] | | | | | [address] | | + + + + + Care Team Providers + +------+ + | Care Water Filtration Technician Name | Role | Phone | + [...] | calculus (Primary | | | | [place], [place] | [place] | Dx) | | | | [address] | [address] | | | | | [phone] | | | +--------+---------+ + + + [...] was seen in the emergency department at [facility]. 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 No known family history of prostate cancer [...] signed: 03/08/2016 5:34 CT imaging 02/20/2016 at [facility] demonstrates mild left hydronephrosis wi th a [...] have not thoroughly proofread this note, and field cane scaler erro rs may occur. CC: Dr Iraheta documented in this en counter Plan of Treatment Not on filedocumented as of this encounter Visit Diagnoses + + | Diagnosis | + + | Left ureteral calculus - Primary Calculus of ureter | + + documented in this encounter
[~2019-11-21 20:48] MED LIST: IBUPROFEN600 MG PO; KEFLEX500 MG PO; NORCO 10-325 T1 EACH PO; PERCOCET 5-3251 EACH PO; ZOFRAN ODT4 MG PO
== END 2019-11-21 21:43 | disposition home or self-care (01) ==
LOC: ED 20:48
DX: S82.832A Other fracture of upper and lower end of left fibula, initial encounter for closed fracture (principal); F17.200 Nicotine dependence, unspecified, uncomplicated; W01.10XA Fall on same level from slipping, tripping and stumbling with subsequent striking against unspecified object, initial encounter
CPT/HCPCS: 73590; 73610; 99283-25

== ENCOUNTER 2023-06-21 05:45 | Day surgery (SDC) | payer BC ==
[2023-06-14 13:32] VITALS: BP 125/90
[~2023-06-21] VITALS: Ht 177.8 cm; Wt 97.0 kg
[~2023-06-21 05:45] MED LIST changes: +METOPROLOL SUCC50 MG PO
[2023-06-21 06:00] VITALS: BP 122/81
--- NOTE | 2023-06-21 07:09 | NUR ---
DS ROUNDS. 15 MINUTES. PROVIDED HOSPITALITY. LISTENED EMPATHETICALLY. PROVIDED PRAYER. PT AND MACHINE DYER EXPRESSED APPRECIATION.
--- NOTE | 2023-06-21 08:07 | NUR ---
06/21/23 0807 Lita Krause PATIENT AWAKE ON ARRIVAL TO PACU AND ASKS TO REMOVE HIS O2 MASK. HE DOES THIS WITHOUT DIFFICULTY.
[2023-06-21 08:15] VITALS: BP 116/84
--- NOTE | 2023-06-21 11:01 | OR ---
[facility] [address] [place], [place] [address] Signed DATE OF OPERATION: 06/21/2023 SURGEON: Sussy Reilly MD PREOPERATIVE DIAGNOSIS: Screening. POSTOPERATIVE DIAGNOSES: 1. 4 mm polyps x3 at 8 cm in rectum. 2. 5 mm polyp in proximal right colon. 3. 5 mm polyp at 68 cm in left colon. 4. 4 mm polyp at 22 cm in sigmoid colon. 5. Xkbqfra-uo-gdbuihcz internal hemorrhoids. PROCEDURE: Colonoscopy with hot biopsy. ESTIMATED BLOOD LOSS: None. INDICATIONS: Dimitri is a 53-year-old gentleman asked to see me for his initial screening colonoscopy. He has no lower GI complaints. There is no family history of colon cancer or polyps. In the office, I gave him a pamphlet on colonoscopy. He understands the nature of the test. There is risk including, but not limited to gas bloating, crampy abdominal pain, bleeding, perforation requiring surgery, and missed diagnosis. We also reviewed the written instructions for the bowel prep line by line. Also, he now has his blood pressure under control, but he continues to drink up to a 5th of whiskey a day along with his smoking. Consequently, we did ask for monitored anesthesia care with propofol infusion that worked out very nicely. He had expressed understanding and wished to proceed. DESCRIPTION OF PROCEDURE: Dimitri was taken into our endoscopy suite and placed in the left lateral decubitus position. He was given monitored anesthesia care with propofol infusion per our nurse avionic technician. A digital rectal exam was performed. He had good sphincter tone. No external hemorrhoids. There were no masses. I could not reach his prostate gland. After this, the adult colonoscope was introduced, advanced all around into the proximal transverse colon. It took just a little bit abdominal compression to get the scope down into the cecum itself. His prep was quite good. We could easily see the appendiceal Electronically Signed By: SUSSY REILLY MD 06/21/23 1101 PATIENT NAME: DIMITRI MARTINEZ OPERATIVE REPORT DATE OF : 70 REPORT #: [id number] PHYSICIAN: SUSSY REILLY MD PCP: TOPHER VAN MD REPORT IS CONFIDENTIAL AND NOT TO BE RELEASED WITHOUT AUTHORIZATION [facility] [address] [place], [place] [address] Signed orifice and ileocecal valve. The scope was then slowly withdrawn. We removed the above-mentioned polyps with the help of a hot biopsy forceps. There were no diverticula. In the rectum, upon retroflexion of scope he had just kekvdhn-yk-tmqrueim internal hemorrhoid columns. After this, the gas was suctioned out, colonoscope removed. Dimitri tolerated the procedure quite well. RECOMMENDATIONS: I will see Dimitri back in my office in 7 to 14 days to review his results. MD FLORENCE Ashton/CONNORL /[id number] cc: Patient Chart MD Sussy Taveras MD Copies: TOPHER VAN MD, ANDREW L MD ~ Electronically Signed By: SUSSY REILLY MD 06/21/23 1101 PATIENT NAME: DIMITRI MARTINEZ ARLET OPERATIVE REPORT DATE OF : 70 REPORT #: [id number] PHYSICIAN: SUSSY REILLY MD PCP: TOPHER VAN MD REPORT IS CONFIDENTIAL AND NOT TO BE RELEASED WITHOUT AUTHORIZATION
--- NOTE | 2023-06-25 17:00 | PATH ---
[facility] [address] [place], [place] [address] Signed SPECIMEN(S): A COLON POLYP AT 8 CM SPECIMEN(S): B PROX. ASCENDING COLON POLYP SPECIMEN(S): C DESCENDING COLON POLYP AT 68 CM SPECIMEN(S): D SIGMOID POLYP AT 22 CM SPECIMEN SOURCE: A. COLON POLYP AT 8 CM B. PROX. ASCENDING COLON POLYP C. DESCENDING COLON POLYP AT 68 CM D. SIGMOID POLYP AT 22 CM CLINICAL HISTORY: Screening. Polyp, right internal hemorrhoids. FINAL PATHOLOGIC DIAGNOSIS: A. Colon polyp at 8 cm: - Hyperplastic polyp (2 fragments). B. Proximal ascending colon polyp: - Serrated polyp/adenoma (1 fragment). C. Descending colon polyp at 68 cm: - Tubular adenoma (1 fragment). D. Sigmoid polyp at 22 cm: - Hyperplastic polyps (3 fragments). JVR:llc MICROSCOPIC EXAMINATION: Histologic sections of all submitted blocks are examined by light microscopy. These findings, together with the gross examination, support the pathologic diagnosis. GROSS DESCRIPTION: A. The specimen, labeled and designated "Margaret, colon polyp at 8 cm," is received in formalin and consists of three denny soft tissue fragments, ranging from 0.1-0.2 cm. Entirely submitted in (A1). B. The specimen, labeled and designated "Margaret, proximal ascending colon polyp," is received in formalin and consists of one denny soft tissue fragment, 0.2 cm. Entirely submitted in (B1). C. The specimen, labeled and designated "[place], descending colon polyp at 68 cm," is received in formalin and consists of one denny soft tissue fragment, 0.2 cm. Entirely submitted in (C1). D. The specimen, labeled and designated "[place], sigmoid polyp at 22 cm," is PATIENT NAME: ELIF MARTINEZ PATHOLOGY DATE OF : 70 REPORT #: [id number] PHYSICIAN: SHAHEEN PATHOLOGY PCP: TOPHER VAN MD REPORT IS CONFIDENTIAL AND NOT TO BE RELEASED WITHOUT AUTHORIZATION [facility] [address] [place], [place] [address] Signed received in formalin and consists of three denny soft tissue fragments, ranging from 0.2-0.3 cm. Entirely submitted in (D1). VB (under the direct supervision of a pathologist) The Gross Description was prepared using a voice recognition system. The report was reviewed for accuracy; however, sound-alike word errors, addition and/or deletions may occur. If there is any question about this report, please contact Client Services. ADDITIONAL NOTES: Immunohistochemical and/or in situ hybridization studies if performed in this case included appropriate positive controls that reacted as expected. This test was developed, and its performance characteristics determined by [facility]. It has not been cleared or approved by the U.S. Food and Drug Administration. The FDA has determined that such clearance or approval is not necessary. This test is used for clinical purposes. It should not be regarded as investigational or for research. [facility] is certified under the Clinical Laboratory Improvement Amendments of 1988 (CLIA) as qualified to perform high complexity clinical laboratory testing. PERFORMING LABORATORY: Technical component was performed by [facility], [address] [place] [id number] (CLIA# [id number]). Professional interpretation was performed by [facility], [address] [place], [place] [address], [place] [address] (CLIA#: [id number]). Diagnostician: Shailesh Rob MD Pathologist Electronically Signed 06/25/2023 Copies: ~ PATIENT NAME: ELIF MARTINEZ ARLET PATHOLOGY DATE OF : 70 REPORT #: [id number] PHYSICIAN: SHAHEEN HUANG PCP: TOPHER VAN MD REPORT IS CONFIDENTIAL AND NOT TO BE RELEASED WITHOUT AUTHORIZATION
== END 2023-06-21 08:30 | disposition home or self-care (01) ==
LOC: OPS 05:45 → DS 05:45 → OPS 07:30
PROVIDERS: ATTEND Colon & Rectal Surgery
PROC: 0DBN8ZX Excision of Sigmoid Colon, Via Natural or Artificial Opening Endoscopic, Diagnostic (ICD-10-PCS; 2023-06-21)
PROC: 0DBP8ZX Excision of Rectum, Via Natural or Artificial Opening Endoscopic, Diagnostic (ICD-10-PCS; 2023-06-21)
PROC: 0DBF8ZX Excision of Right Large Intestine, Via Natural or Artificial Opening Endoscopic, Diagnostic (ICD-10-PCS; 2023-06-21)
PROC: 0DBG8ZX Excision of Left Large Intestine, Via Natural or Artificial Opening Endoscopic, Diagnostic (ICD-10-PCS; principal; 2023-06-21 07:30)
DX: Z12.11 Encounter for screening for malignant neoplasm of colon (principal); D12.2 Benign neoplasm of ascending colon; D12.4 Benign neoplasm of descending colon; K63.5 Polyp of colon; K64.8 Other hemorrhoids; I10 Essential (primary) hypertension; E78.2 Mixed hyperlipidemia; F10.10 Alcohol abuse, uncomplicated; F32.9 Major depressive disorder, single episode, unspecified; F17.210 Nicotine dependence, cigarettes, uncomplicated; Z79.899 Other long term (current) drug therapy
CPT/HCPCS: 00812; J2001; J2704; J7121

== ENCOUNTER 2024-10-07 06:44 | Day surgery (SDC) | payer BC ==
[~2024-10-07] VITALS: Ht 177.8 cm; Wt 100.0 kg
[~2024-10-07 06:44] MED LIST changes: +LACTATED RINGER'S 1,000 ML IV SCH
[2024-10-07 06:58] VITALS: BP 168/85
[2024-10-07] MEDS ORDERED: LIDOCAINE HCL 1% 5 ML SDV INJ ONE (07:00)
[2024-10-07] MEDS ORDERED: IBLOOD GLUCOSE TEST STRIP 1 EA TEST VI PRN ×2 (07:00→10:15)
[2024-10-07] MEDS ORDERED: MIDAZOLAM HCL 2 MG/2 ML VIAL ONE (08:19)
[2024-10-07] MEDS ORDERED: SUCCINYLCHOLINE IN 0.9% NACL 200 MG/10 ML SYRINGE ONE (08:19)
[2024-10-07] MEDS ORDERED: propofoL 200 MG/20 ML VIAL ONE (08:19)
[2024-10-07] MEDS ORDERED: fentaNYL citrate 100 MCG/2 ML VIAL ONE (08:19)
[2024-10-07] MEDS ORDERED: ACETAMINOPHEN 1,000 MG/100 ML VIAL ONE (08:19)
[2024-10-07] MEDS ORDERED: ROCURONIUM BROMIDE 50 MG/5 ML SYR ONE (08:19)
[2024-10-07] MEDS ORDERED: ondansetron HCL 4 MG/2 ML VIAL ONE (08:19)
[2024-10-07] MEDS ORDERED: DEXAMETHASONE SOD PHOS 4 MG/ML VIAL ONE (08:19)
[2024-10-07] MEDS ORDERED: LIDOCAINE HCL 2% 5 ML SDV ONE (08:21)
[2024-10-07] MEDS ORDERED: SUGAMMADEX SODIUM 200 MG/2 ML ML ONE (08:22)
[2024-10-07] MEDS ORDERED: SEVOFLURANE 250 ML BTL INH ONE (08:34)
--- NOTE | 2024-10-07 09:33 | NUR ---
10/07/24 0933 Raina Villegas 0912 PT ARRIVED IN PACU AWAKE AND TALKING TO STAFF. C/O SORE THROAT 1-08/18. 0918 SIPPING ON WATER. 0920 DR AT BEDSIDE. ALL QUESTIONS ANSWERED.
[2024-10-07 09:59] VITALS: BP 136/74
--- NOTE | 2024-10-07 10:13 | NUR ---
0959-PT BACK TO ROOM 5 FROM PACU ON . RECEIVED REPORT FROM CLARKE MCCAULEY. PT IS AWAKE. RESP EVEN AND UNLABORED. PT DENIES PAIN. STATES JUST A SCRATCHY THROAT. PT TAKING SIPS OF WATER. NO OTHER NEEDS AT THIS TIME. CALL LIGHT WITHIN REACH.
[2024-10-07] MEDS ORDERED: fentaNYL citrate 50 MCG/ML SDV IV PRN (10:15)
[2024-10-07] MEDS ORDERED: PROCHLORPERAZINE EDISYLATE 10 MG/2 ML VIAL IV PRN (10:15)
[2024-10-07] MEDS ORDERED: ondansetron HCL 4 MG/2 ML VIAL IV PRN (10:15)
[2024-10-07] MEDS ORDERED: droPERidol 5 MG/2 ML VIAL IV PRN (10:15)
[2024-10-07] MEDS ORDERED: HYDROmorphone HCL 1 MG/ML SYR IV PRN (10:15)
[2024-10-07] MEDS ORDERED: NALOXONE HCL 0.4 MG SYR IV PRN (10:15)
[2024-10-07 10:57] VITALS: BP 146/87
--- NOTE | 2024-10-07 11:57 | NUR ---
1057-PT AWAKE. RESP EVEN AND UNLABORED. DENIES PAIN AND NAUSEA. NO DRAINAGE NOTED. PT READY TO GO HOME. PARTNER IN ROOM WITH PT. PT WILL GET DRESSED. CALL LIGHT WITHIN REACH.
--- NOTE | 2024-10-07 11:58 | NUR ---
1110-PROVIDED PT WITH DISCHARGE INSTRUCTIONS. ALL QUESTIONS ANSWERED. PT AMBULATES TO WHEELCHAIR AND RIDE PROVIDED TO FRONT OF HOSPITAL WHERE PARTNER WAS WAITING WITH THE CAR.
--- NOTE | 2024-10-07 12:12 | OR ---
[facility] [address] [place], [place] [address] Signed DATE OF OPERATION: 10/07/2024 SURGEON: Jorge Luis Cruz MD PREOPERATIVE DIAGNOSIS: Left tongue lesion. POSTOPERATIVE DIAGNOSIS: Left pharyngeal lesion. PROCEDURE: Excision of left pharyngeal lesion. ANESTHESIA: General orotracheal, BUYING INTERN, Rad. PREOPERATIVE HISTORY: Mr. Robles is a 54-year-old man, who has a left posterior oral lesion discovered by his dentist. Exam in the office showed a purplish exophytic lesion that appeared to be attached to the left posterolateral tongue. Very difficult exam due to large massive size of his tongue and small oropharyngeal airway. He is a smoker. He is being taken to the operating room for excisional biopsy of this lesion. OPERATIVE PROCEDURE AND FINDINGS: After informed consent, the patient was taken to the operating room, placed in the supine position where general orotracheal anesthesia was induced. The patient and procedure were verified. The patient was repositioned. McIvor mouth gag placed into suspension. Unable to see the lesion with the McIvor due to the difficult airway, very difficult jaw opening, large tongue. The McIvor mouth gag was removed. The cloverleaf retractor was then used and inspection of the left lateral posterior tongue and tonsillar fossa area revealed a purplish exophytic polypoid lesion that appeared to be attached basically to the anterior tonsillar pillar. This lesion was completely excised with suction cautery measured about a cm, was sent to pathology in formalin. The base of the lesion was cauterized and hemostasis was obtained. The pharynx was suctioned clear of blood and secretions. The retractor was removed. The patient was awakened, extubated, transferred to the recovery room in good condition. No complications. BLOOD LOSS: Minimal. Electronically Signed By: JORGE LUIS CRUZ MD 10/07/24 1212 PATIENT NAME: ELIF ROBLES OPERATIVE REPORT DATE OF : 70 REPORT #: [id number] PHYSICIAN: JORGE LUIS CRUZ MD PCP: TOPHER VAN MD REPORT IS CONFIDENTIAL AND NOT TO BE RELEASED WITHOUT AUTHORIZATION [address] [place], [place] [address] Signed SPECIMEN: To pathology. DRAINS: No drains. Jorge Luis Cruz MD GC/MODL /[id number] Copies: ~ Electronically Signed By: JORGE LUIS CRUZ MD 10/07/24 1212 PATIENT NAME: ELIF ROBLES ARLET OPERATIVE REPORT DATE OF : 70 REPORT #: [id number] PHYSICIAN: JORGE LUIS CRUZ MD PCP: TOPHER VAN MD REPORT IS CONFIDENTIAL AND NOT TO BE RELEASED WITHOUT AUTHORIZATION
--- NOTE | 2024-10-09 16:14 | PATH ---
[facility] [address] [place], [place] [address] Signed SPECIMEN(S): A LEFT PHARYNGEAL SPECIMEN SOURCE: A. LEFT PHARYNGEAL CLINICAL HISTORY: Lesion left posterior tongue FINAL PATHOLOGIC DIAGNOSIS: Left pharyngeal biopsy: - Benign squamous epithelium with features consistent with lingual tonsil with focal acute inflammation. - Negative for significant atypical epithelial features or evidence of malignancy. COMMENT: As part of [facility]' Quality Improvement Program, this case was reviewed by another member of our pathology staff. LucasVR:annmarie MICROSCOPIC EXAMINATION: Histologic sections of all submitted blocks are examined by light microscopy. These findings, together with the gross examination, support the pathologic diagnosis. GROSS DESCRIPTION: The specimen, labeled and designated "Margaret, left pharyngeal," is received in formalin and consists of a pink-denny piece of soft tissue/mucosa (1.4 x 0.8 x 0.5 cm). The resection margin is inked blue, and the tissue is serially sectioned to reveal pink-denny soft cut surfaces. The specimen is submitted entirely in cassette (A1). VB (under the direct supervision of a pathologist) The Gross Description was prepared using a voice recognition system. The report was reviewed for accuracy; however, sound-alike word errors, addition and/or deletions may occur. If there is any question about this report, please contact Client Services. PERFORMING LABORATORY: The technical component was performed by [facility], [address] [place] [id number] (CLIA# [id number]). Professional interpretation was performed by [facility] [place], PATIENT NAME: ELIF MARTINEZ PATHOLOGY DATE OF : 70 REPORT #: [id number] PHYSICIAN: SHAHEEN PATHOLOGY PCP: TOPHER VAN MD REPORT IS CONFIDENTIAL AND NOT TO BE RELEASED WITHOUT AUTHORIZATION [address] [place], [place] [address] [address], [place] [address] (CLIA#: [id number]). Diagnostician: Shailesh Rob MD Pathologist Electronically Signed 10/09/2024 Copies: ~ PATIENT NAME: ELIF MARTINEZ PATHOLOGY DATE OF : 70 REPORT #: [id number] PHYSICIAN: SHAHEEN PATHOLOGY PCP: TOPHER VAN MD REPORT IS CONFIDENTIAL AND NOT TO BE RELEASED WITHOUT AUTHORIZATION
== END 2024-10-07 11:10 | disposition home or self-care (01) ==
LOC: DS 06:44
PROVIDERS: ATTEND Otolaryngology
PROC: 0CBM7ZZ Excision of Pharynx, Via Natural or Artificial Opening (ICD-10-PCS; principal; 2024-10-07 08:30)
DX: J39.2 Other diseases of pharynx (principal); I10 Essential (primary) hypertension; E78.00 Pure hypercholesterolemia, unspecified; F17.200 Nicotine dependence, unspecified, uncomplicated; Z79.899 Other long term (current) drug therapy
CPT/HCPCS: 00170; J0131; J0330; J1100; J2003; J2250; J2405; J2704; J3010; J3490; J7121